=== PATIENT | female | born 1980 | race Caucasian/White ===

== ENCOUNTER 2021-05-09 20:30 | Emergency (ER) | payer SELFPAY ==
[2021-05-09 21:18] VITALS: BP 149/97; PULSE 92; RESP 18; TEMP 36.6; O2SAT 97; BMI 30.9
--- NOTE | 2021-05-10 | ED_ITS ---
Documented by User: THERESE Lantigua 05/10/21 00:01 HPI - Alcohol General: Chief Complaint: Alcohol Stated Complaint: wants to detox Time Seen by Provider: 05/09/21 23:48 [facility] ED PFSH: Medical History Psychiatric care Social History Quit status (tobacco): has tried quititng Number of times tried to quit tobacco: 3 Second hand smoke exposure: No Alcohol intake: current Alcohol intake frequency: few times a week Alcohol type: hard liquor Desire information about alcohol rehabilitation?: No Counseling given: Yes Last alcohol use date: 04/19/21 Last alcohol use time: 11:48 Course Vital Signs: Vital signs: Vital Signs Temperature 97.8 F 05/09/21 21:18 Pulse Rate 92 05/09/21 21:18 Respiratory Rate 18 05/09/21 21:18 Blood Pressure 149/97 05/09/21 21:18 Pulse Oximetry 97 05/09/21 21:18 MDM - Alcohol MDM Narrative: Medical decision making narrative: Visit with patient and discussed facilities are available for rehab treatment such as [facility]. Patient was in [facility] couple weeks ago they admitted for 24 hours and she left AMA. Patient has been in multiple facilities over the last few years and continues to abuse EtOH. Advised patient when a detox facility and patient is upset and left AGAINST MEDICAL ADVICE. I was unable to finish my exam. Patient did have a friend with her who is been taking care for the last few weeks and will be given her a ride home and they will contact [facility] in the next 24 to 36 hours. Friend is with her does have a friend who works at [facility] is waiting for work a phone call back from her. Patient is not suicidal or homicidal. Patient is just desiring to quit drinking. Discharge Plan Discharge Patient Disposition: Left Against Medical Advice Clinical Impression: EtOH dependence Condition: Stable Prescriptions: No Action lisinopril 5 mg tablet 5 mg PO DAILY Qty: 30 RF: 0 gabapentin 600 mg tablet 600 mg PO QID Qty: 120 RF: 0 chlordiazepoxide HCl 5 mg capsule 5 mg PO BID PRN (Reason: anxiety) 7 Days Qty: 14 RF: 0 Referrals: Nidhi Arreaga FNP [Primary Care Provider] - Coding Level of Care Code ED Cement Tester Assistant for Chg Fwd Documented by User: Christiano Barrett DO 05/10/21 01:41 HPI - Alcohol General: Chief Complaint: Alcohol Stated Complaint: wants to detox Time Seen by Provider: 05/09/21 23:48 [facility] ED PFSH: Medical History Psychiatric care Social History Quit status (tobacco): has tried quititng Number of times tried to quit tobacco: 3 Second hand smoke exposure: No Alcohol intake: current Alcohol intake frequency: few times a week Alcohol type: hard liquor Desire information about alcohol rehabilitation?: No Counseling given: Yes Last alcohol use date: 04/19/21 Last alcohol use time: 11:48 Course Vital Signs: Vital signs: Vital Signs Temperature 97.8 F 05/09/21 21:18 Pulse Rate 92 05/09/21 21:18 Respiratory Rate 18 05/09/21 21:18 Blood Pressure 149/97 05/09/21 21:18 Pulse Oximetry 97 05/09/21 21:18 MDM - Alcohol MDM Narrative: Medical decision making narrative: This patient was originally seen by THERESE Bhandari. I agree with his history, evaluation, and treatment. Discharge Plan Discharge Patient Disposition: Left Against Medical Advice Clinical Impression: EtOH dependence Condition: Stable Prescriptions: No Action lisinopril 5 mg tablet 5 mg PO DAILY Qty: 30 RF: 0 gabapentin 600 mg tablet 600 mg PO QID Qty: 120 RF: 0 chlordiazepoxide HCl 5 mg capsule 5 mg PO BID PRN (Reason: anxiety) 7 Days Qty: 14 RF: 0 Referrals: Nidhi Arreaga FNP [Primary Care Provider] - Coding Level of Care Code ED Cement Tester Assistant for Chg Fwd
== END 2021-05-10 00:02 | disposition left against medical advice (07) ==
PROVIDERS: Emergency Provider Nurse Practitioner Family; PCP Nurse Practitioner Family
DX: F10.20 Alcohol dependence, uncomplicated (principal); Z53.21 Procedure and treatment not carried out due to patient leaving prior to being seen by health care provider
CPT/HCPCS: 99281

== ENCOUNTER → 2021-08-06 08:31 | Outpatient (BNVA) | payer MEDICAID, SELFPAY | PROVIDERS: PCP Nurse Practitioner Family; Visit Provider Counselor Mental Health | DX: F10.20 Alcohol dependence, uncomplicated (principal); F60.3 Borderline personality disorder | CPT/HCPCS: 90832 ==

== ENCOUNTER → 2021-11-17 11:33 | Outpatient (BNVA) | payer MEDICAID, SELFPAY | PROVIDERS: PCP Nurse Practitioner Family; Visit Provider Nurse Practitioner Family | DX: F60.3 Borderline personality disorder (principal); I10 Essential (primary) hypertension; G62.9 Polyneuropathy, unspecified | CPT/HCPCS: 80053 ==

== ENCOUNTER 2021-12-25 18:02 | Inpatient (IN) | payer MEDICAID, SELFPAY ==
[2021-12-25 18:41] VITALS: BP 127/84; PULSE 95; RESP 16; TEMP 36.6; O2SAT 94; BMI 29.8
--- NOTE | 2021-12-25 18:42 | ED.C_ITS ---
HPI - Psych General: Chief Complaint: Psychiatric Symptoms Stated Complaint: suicidal Time Seen by Provider: 12/25/21 18:18 Source: patient and police Mode of arrival: other (PD) Limitations: no limitations History of Present Illness: This patient was transported by Police Department to this facility for psychiatric evaluation and treatment as indicated. Apparently she became desponded about interaction with family members and made threats that she was going to harm her self. She allegedly was holding a knife to her throat and was talked down out of that situation by police and then transported to the emergency department. She admits that she has been feeling depressed and despondent. She states that she has been a heavy alcohol user for many years. Her last drink was earlier today. She states that she was contemplating stopping drinking couple weeks ago but then has been still drinkin g some since that time. She is transported to the emergency department accompanied by an affidavit alleging her threats for self-harm. She desires help at this time. MD complaint: suicidal ideation and feels depressed Context: recent alcohol abuse Associated psychiatric symptoms: suicidal ideation Associated symptoms: Reports depression and suicidal ideation; Deny auditory hallucinations, visual hallucinations or homicidal ideation If self harm: admits thoughts of self harm Review of Systems Const: Denies: fever(s) or chills Eyes: Denies: change in vision ENMT: Denies: throat pain, odynophagia, change in hearing or nasal congestion Card: Denies: chest pain, palpitations or irregular heart rhythm Resp: Denies: dyspnea, productive cough or non-productive cough GI: Denies: abdominal pain, nausea, vomiting or diarrhea : Denies: flank pain, difficulty voiding, dysuria, vaginal bleeding or vaginal discharge Musc: Denies: neck pain, back pain, extremity pain or extremity swelling Skin/Breast: Denies: rash or pruritus Neuro: Denies: headache(s), numbness in extremities or weakness in extremities Psych: Reports: depression, memory loss and suicidal ideation; Denies: visual hallucinations, auditory hallucinations or homicidal ideation Endo: Denies: polyuria or polydipsia PFS ED PFSH: Medical History Neuropathy Psychiatric care Social History Quit status (tobacco): has tried quititng Number of times tried to quit tobacco: 3 Second hand smoke exposure: No Alcohol intake: current Alcohol intake frequency: few times a week Alcohol type: hard liquor Desire information about alcohol rehabilitation?: No Counseling given: Yes Last alcohol use date: 04/19/21 Last alcohol use time: 11:48 Physical Exam Narrative: EXAM NARRATIVE: She is initially hesitant and reticent to talk with examiner but then was reassured and she opened up and made good Eye contact and answer questions in a calm goal-directed fashion. Const: COMMON NORMALS: no acute distress, average body habitus, patient oriented x3 and alert GENERAL APPEARANCE: cooperative HENMT: COMMON NORMALS: normocephalic, Normal nasal mucous membranes and turbinates present and moist oral mucous membranes HEAD & SCALP: normocephalic FACE & SINUS: normal facial exam NOSE: Normal nasal mucous membranes and turbinates present THROAT: other (teeth 22,23 and 24 missing) Eye: COMMON NORMALS: Equal, round and reactive pupils present, EOMs intact bilaterally and no scleral icterus PUPIL: Yes Equal, round and reactive pupils present Neck/C-Spine: COMMON NORMALS: full ROM and supple Chest: COMMONS NORMALS: normal inspection of the chest Resp: COMMON NORMALS: normal respiratory effort, No retractions and No use of accessory muscles EFFORT & INSPECTION: Yes able to speak in complete sentences Cardio: COMMON NORMALS: regular rate, regular rhythm and Peripheral pulses 2+ throughout RATE: regular rate RHYTHM: regular rhythm PERIPHERAL PULSES: Peripheral pulses 2+ throughout GI: COMMON NORMALS: Normal to inspection, nondistended, normoactive bowel sounds present Back/Pelvis: COMMON NORMALS: thoracic and lumbar spine normal to inspection and thoraco-lumbar ROM normal Extremity: COMMON NORMALS: normal to inspection, full ROM and no pedal edema Neuro: COMMON NORMALS: patient oriented x3, moves all extremities, no focal motor deficits, no sensory deficits noted and deep tendon reflexes 2+ bi laterally SENSORIUM/ORIENTATION: Yes alert CRANIAL NERVES: Yes CN normal except as noted SPEECH: speech normal GAIT: Yes Normal gait present Psych: COMMON NORMALS: Normal thought process present and speech normal ATTITUDE: Yes calm and Yes Withdrawn affect present SPEECH: Yes normal speech MOOD & AFFECT: Yes depressed mood, Yes anxious and Yes constricted affect THOUGHT PROCESS: Normal thought process present THOUGHT CONTENT: Yes Suicidality present MEMORY/COGNITION: Yes memory grossly intact INSIGHT: Fair insight present (Psych) Skin: COMMON NORMALS: no rashes or lesions noted and no wounds GENERAL SKIN EXAM: no rashes or lesions noted Course ED course: Patient with history of bipolar disorder, alcohol use, worsening depression over the last several days of was transported by police department with affidavit regarding suicidal threats and ideation. Medical screening ex amination was only remarkable in that her blood alcohol level is elevated and will need to be repeated prior to transfer to the inpatient mental health unit. Otherwise she is medically cleared for psychiatric evaluation. She is stable and cooperative throughout her ED stay. Consultations: Consultation #1: Discussed with Dr. Jacob attending psychiatrist. We reviewed her case and he agreed except the patient. There is a pending discharge on the mental health unit and she therefore would be eligible for admission. Time: 21:37 Vital Signs: Vital signs: Vital Signs Temperature 97.8 F 12/25/21 18:53 Pulse Rate 95 12/25/21 18:53 Respiratory Rate 16 12/25/21 18:53 Blood Pressure 127/84 12/25/21 18:53 Pulse Oximetry 94 12/25/21 18:53 MDM - Psych Medical Decision Making This patient to was brought by police department because of suicidal threat is currently cooperative and medically stable for further mental health evaluation and treatment as indicated. Differential Diagnosis Likely suicidal ideation and bipolar disorder Lab Data I reviewed the patient's lab results. : 12/25/21 21:14 12/25/21 21:14 Laboratory Results WBC 8.9 10^3/uL (4.0-10.0) 12/25/21 21:14 RBC 4.67 10^6/uL (4.1-5.3) 12/25/21 21:14 Hgb 14.3 g/dL (11.5-15.3) 12/25/21 21:14 Hct 40.2 % (37.0-47.0) 12/25/21 21:14 MCV 86.1 fl (81-99) 12/25/21 21:14 MCH 30.6 pg (28.0-34.0) 12/25/21 21:14 MCHC 35.6 g/dL (30.0-36.0) 12/25/21 21:14 RDW 13.3 % (12.1-15.1) 12/25/21 21:14 Plt Count 148 10^3/cmm (130-400) 12/25/21 21:14 MPV 10.9 fL (7.4-10.4) H 12/25/21 21:14 Neut % (Auto) 31.0 % 12/25/21 21:14 Lymph % (Auto) 55.5 % 12/25/21 21:14 Sharkey % (Auto) 7.0 % 12/25/21 21:14 Eos % (Auto) 5.4 % 12/25/21 21:14 Baso % (Auto) 0.9 % 12/25/21 21:14 Neut # (Auto) 2.77 10^3/uL (1.8-7.7) 12/25/21 21:14 Lymph # (Auto) 5.0 10^3/uL (0.8-4.8) H 12/25/21 21:14 Sharkey # (Auto) 0.6 10^3/uL (0.2-0.9) 12/25/21 21:14 Eos # (Auto) 0.5 10^3/uL (0.0-0.8) 12/25/21 21:14 Baso # (Auto) 0.1 10^3/uL (0.0-0.1) 12/25/21 21:14 Nucleated RBC % (auto) 0 % 12/25/21 21:14 Nucleated RBCs # 0.0 /100WBC 12/25/21 21:14 Sodium 140 mmol/L (136-145) 12/25/21 21:14 Potassium 3.7 mmol/L (3.5-5.1) 12/25/21 21:14 Chloride 103 mmol/L (98-107) 12/25/21 21:14 Carbon Dioxide 22 mmol/L (22-29) 12/25/21 21:14 Anion Gap 18.7 (5-19) 12/25/21 21:14 BUN 10 mg/dL (6-20) 12/25/21 21:14 Creatinine 0.9 mg/dL (0.5-0.9) 12/25/21 21:14 GFR Calculation 68.3 mL/min (90-130) L 12/25/21 21:14 Glucose 109 mg/dL (65-115) 12/25/21 21:14 Calculated Osmolality 290 mOsm/kg (285-295) 12/25/21 21:14 Calcium 8.9 mg/dL (8.5-10.5) 12/25/21 21:14 Total Bilirubin 0.6 mg/dL (0.15-1.2) 12/25/21 21:14 AST 97 U/L (0-32) H 12/25/21 21:14 ALT 96 U/L (0-33) H 12/25/21 21:14 Alkaline Phosphatase 74 IU/L (35-105) 12/25/21 21:14 Total Protein 7.6 g/dL (6.6-8.7) 12/25/21 21:14 Albumin 3.9 g/dL (3.5-5.2) 12/25/21 21:14 Globulin 3.7 g/dL (1.3-4.6) 12/25/21 21:14 HCG, Qual Negative (Negative) 12/25/21 18:25 Salicylates < 0.3 mg/dL (3-10) L 12/25/21 21:14 Urine Opiates Screen Negative ng/mL (Negative) 12/25/21 18:25 Acetaminophen < 5.0 ug/mL (10-30) L 12/25/21 21:14 Ur Barbiturates Screen Negative ng/mL (Negative) 12/25/21 18:25 Ur Phencyclidine Scrn Negative ng/mL (Negative) 12/25/21 18:25 Ur Amphetamines Screen Negative ng/mL (Negative) 12/25/21 18:25 U Benzodiazepines Scrn Negative ng/mL (Negative) 12/25/21 18:25 Urine Cocaine Screen Negative ng/mL (Negative) 12/25/21 18:25 U Marijuana (THC) Screen Negative ng/mL (Negative) 12/25/21 18:25 Ethyl Alcohol 243 mg/dL (0-10) H 12/25/21 21:14 Discharge Plan Discharge Patient Disposition: Admitted As Inpatient Clinical Impression: Suicidal ideation, Bipolar disorder, EtOH dependence Condition: Stable Coding Level of Care Code ED Green Ware Caster for Gabriela Fwd Exam Comprehensive
[2021-12-25 18:53] VITALS: BP 127/84; PULSE 95; RESP 16; TEMP 36.6; O2SAT 94
[2021-12-25 18:59] LABS: HCG Qualitative Urine. Negative (Negative)
[2021-12-25 21:00] LABS: Amphetamines Screen Urine Negative (Negative); Barbiturates Screen Urine Negative (Negative); Benzodiazepines Screen Urine Negative (Negative); Cocaine Screen Urine Negative (Negative); Opiate Screen Urine Negative (Negative); PCP Screen Urine Negative (Negative); THC Screen Urine Negative (Negative)
[2021-12-25 21:40] LABS: Basophils # 0.1 10^3/uL (0.0-0.1); Basophils % 0.9 %; Eosinophils # 0.5 10^3/uL (0.0-0.8); Eosinophils % 5.4 %; Hematocrit 40.2 % (37.0-47.0); Hemoglobin 14.3 g/dL (11.5-15.3); Lymphocytes % 55.5 %; Mean Corpuscular HGB Conc 35.6 g/dL (30.0-36.0); Mean Corpuscular Hemoglobin 30.6 pg (28.0-34.0); Mean Corpuscular Volume 86.1 fl (81-99); Mean Platelet Volume 10.9 fL (7.4-10.4); Monocytes # 0.6 10^3/uL (0.2-0.9); Neutrophils # 2.77 10^3/uL (1.8-7.7); Nucleated Red Blood Cells % 0 %; Platelet Count 148 10^3/cmm (130-400); Red Blood Count 4.67 10^6/uL (4.1-5.3); Red Cell Distribution Width 13.3 % (12.1-15.1); White Blood Count 8.9 10^3/uL (4.0-10.0)
[2021-12-25 21:51] LABS: Alanine Aminotransferase 96 U/L (0-33); Albumin Level 3.9 g/dL (3.5-5.2); Alcohol Level 243 mg/dL (0-10); Alkaline Phosphatase 74 IU/L (35-105); Anion Gap 18.7 (5-19); Aspartate Amino Transferase 97 U/L (0-32); Blood Urea Nitrogen 10 mg/dL (6-20); Calcium 8.9 mg/dL (8.5-10.5); Carbon Dioxide 22 mmol/L (22-29); Chloride 103 mmol/L (98-107); Globulin 3.7 g/dL (1.3-4.6); Glomerular Filtration Rate 68.3 mL/min (90-130); Glucose 109 mg/dL (65-115); Osmolality Calculated 290 mOsm/kg (285-295); Potassium 3.7 mmol/L (3.5-5.1); Sodium 140 mmol/L (136-145); Total Bilirubin 0.6 mg/dL (0.15-1.2); Total Protein 7.6 g/dL (6.6-8.7)
[2021-12-25 21:53] LABS: Acetaminophen < 5.0 ug/mL (10-30); Salicylate < 0.3 mg/dL (3-10)
[2021-12-26] MEDS: ondansetron 4 MG Tablet PO (02:00)
--- NOTE | 2021-12-26 02:26 | PC.NURSE ---
patient given Oral zofran approx 0200. patient with immediately noted vomiting episodes. Provider notified and will give IM
[2021-12-26] MEDS: ondansetron 2 mg/ML SDV 2 mL 4 MG IM (02:35)
[2021-12-26 02:57] LABS: Alcohol Level 118 mg/dL (0-10)
[2021-12-26] MEDS: gabapentin 300 mg Capsule 600 MG PO ×5 (03:20→20:08)
[2021-12-26] MEDS: LORazepam 2 mg Tablet PO ×4 (04:06→16:13)
--- NOTE | 2021-12-26 04:32 | PC.ADMIT ---
Admission Note: This patient was transported by Police Department to this facility for psychiatric evaluation and treatment as indicated. Apparently she became desponded about interaction with family members and made threats that she was going to harm her self. She allegedly was holding a knife to her throat and was talked down out of that situation by police and then transported to the emergency department. She admits that she has been feeling depressed and despondent. She states that she has been a heavy alcohol user for many years. Her last drink was earlier today. She states that she was contemplating stopping drinking couple weeks ago but then has been still drinking some since that time. She is transported to the emergency department accompanied by an affidavit alleging her threats for self-harm. She desires help at this time. MD complaint: suicidal ideation and feels depressed Patient states that she called the suicide hotline today because she was thinking of killing herself. When police arrived the patient was holding a knife to her neck. The police were able to talk her down and she came to get help. She states that she has lots of family dynamics going on right now so she has been drinking more. She states before all of this she could go 2-3 weeks without a drink but has been drinking 2-3 pints of rum daily. In the last week she has tried to cut it down to 1 pint. Patient denies AVH/HI. She states that she wants to go to rehab. The patient,Terra Kenny,41 y/o, was given written information regarding hospital policies, unit procedures and contact persons. .
--- NOTE | 2021-12-26 05:04 | PC.NURSE ---
Patient arrived at the [facility] and was visibly uncomfortable. She had whole body tremors/shakes, diaphoretic, nauseated, and with a continuous cough that was making her gag. She scored a 23 on the initial CIWA. She was given Ativan 2mg immediately for detox symptoms. Reported to Bead Trimmer Lizette the condition she was in when arriving to the [facility].
[2021-12-26 06:00] VITALS: BP 105/65; PULSE 80; RESP 18; TEMP 36.8; O2SAT 97
--- NOTE | 2021-12-26 08:45 | PC.NURSE ---
PT AROUSES TO VOICE. STATES SHE HAS A MILD HEADACHE 4/10 AND HAS VISIBLE TREMORS/SWEATING. SCORED 14 ON CIWA. MED NURSE NOTIFIED TO ATIVAN ORDERED. PT DENIES SI/HI AND AVH AT THIS TIME. PT UNCERTAIN OF DATE AND TIME. REORIENTATED. ALL QUESTIONS ANSWERED AND SUPPORT VOICED.
[2021-12-26] MEDS: lisinopril 5 mg Tablet PO (08:47)
[2021-12-26] MEDS: nicotine 21 mg Patch 1 PATCH TRANSDERMA (08:50)
[2021-12-26 14:00] VITALS: BP 127/83; PULSE 112; RESP 17; TEMP 36.8; O2SAT 94
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
[2021-12-26] MEDS: ibuprofen 800 mg tablet PO (19:09)
[2021-12-26 19:51] VITALS: BP 135/85; PULSE 87; RESP 16; TEMP 36.4; O2SAT 97
[2021-12-27] MEDS: hyDROXYzine 25 mg Capsule 50 MG PO ×2 (02:49→20:05)
[2021-12-27 06:00] VITALS: BP 134/91; PULSE 88; RESP 18; TEMP 36.8; O2SAT 96
[2021-12-27] MEDS: gabapentin 300 mg Capsule 600 MG PO ×4 (08:39→20:06)
[2021-12-27] MEDS: nicotine 21 mg Patch 1 PATCH TRANSDERMA (08:39)
[2021-12-27] MEDS: ibuprofen 800 mg tablet PO (08:39)
[2021-12-27] MEDS: lisinopril 5 mg Tablet PO (08:40)
[2021-12-27] MEDS: LORazepam 2 mg Tablet PO (09:48)
[2021-12-27 14:00] VITALS: BP 121/78; PULSE 92; RESP 18; TEMP 36.9; O2SAT 99
[2021-12-27] MEDS: OLANZapine 5 mg ODT PO (16:50)
--- NOTE | 2021-12-27 17:22 | P.NPUPN_ITS ---
Subjective NPU Subjective: 41y.o. white female with PTSD and alcohol dependence along with Bipolar Disorder NOS admitted with suicidal ideation. She continued to require addition ativan due to alcohol withdrawal symptoms. Patient had reported that she continued to feel depressed and anxious. She reports desire to get help for alcohol use with reports that she has been sober for at most 30 days over the last 28 years. Patient reports no thoughts of hurting self or others but continues to endorse feelings of hopelessness. Patient reports continued PTSD symptoms, including nightmares, flashbacks and avoidance. Mental Status Exam MSE Comments: Casually dressed female who appeared older than her stated age he was crying throughout much review appeared dysphoric her hands were shaking described as down her affect was restricted in range her thought process was linear and logical thought content showed no evidence of active homicidal ideation or suicidal ideation her insight was limited her judgment remain poor S peech was normal in regards to rate rhythm and prosody. Vitals/I&O/Wt Last Vital Signs Temp 98.4 F 12/27/21 14:00 Pulse 92 12/27/21 14:00 Resp 18 12/27/21 14:00 BP 121/78 12/27/21 14:00 Pulse Ox 99 12/27/21 14:00 Weight last 48 hrs Weight 73.936 kg Data NPU : 12/25/21 21:14 12/25/21 21:14 A&P Assessment and plan (1) PTSD (post-traumatic stress disorder): Status: Acute (2) Suicidal ideation: Status: Acute (3) Bipolar disorder: Status: Acute (4) Anxiety: Status: Acute (5) Hypertension: Status: Acute (6) Borderline personality disorder: Status: Acute (7) Alcohol use disorder, severe, dependence: Status: Acute Plan 1. Start Seroquel 100mg at night target bipolar symptoms 2. Continue to work at consideration of inpatient placement for alcohol dependence 3. Alcohol withdrawal protocol, CIWA continue 4. add naltrexone oral 50mg daily today. 5. Continue involuntary 96 hold. Involuntary Hold Information 96 Hour Hold: 96 Hour Involuntary Admission: Yes 96 Hour Hold Ending Date: 01/02/22 96 Hour Hold Ending Time: 03:45 Attestations NPU Medical Necessity Statement*: Inpatient hospitalization is medically necessary and the clinically appropriate intervention at this time. We will monitor medications and make changes as indicated. Patient continues to require inpatient hospitalizations for 3-5 days. Coding Level of Care Code Acute Tableau Administrator for Chg Fwd History Problem Focused Exam Problem Focused Medical Decision Making Straight Forward Diagnoses PTSD (post-traumatic stress disorder) F43.10 Suicidal ideation R45.851 Bipolar disorder F31.9 Anxiety F41.9 Hypertension I10 Borderline personality disorder F60.3 Alcohol use disorder, severe, dependence F10.20
[2021-12-27] MEDS: quetiapine 25 mg Tablet 50 MG PO (20:05)
[2021-12-27 20:13] VITALS: BP 121/81; PULSE 102; RESP 16; TEMP 36.8; O2SAT 94
--- NOTE | 2021-12-27 20:54 | PC.NURSE ---
PRN PT STATES SHE IS ANXIOUS THIS EVENING AND HAVING TROUBLE TURNING HER MIND OFF. PT WAS GIVEN VISTERIL AND IS NOW RESTING IN BED.
[2021-12-28 06:00] VITALS: BP 116/81; PULSE 88; RESP 16; TEMP 36.8; O2SAT 93; BMI 30.2
[2021-12-28] MEDS: naltrexone hcl 50 mg Tablet PO (07:52)
[2021-12-28] MEDS: gabapentin 300 mg Capsule 600 MG PO ×3 (07:52→17:18)
[2021-12-28] MEDS: lisinopril 5 mg Tablet PO (07:53)
[2021-12-28] MEDS: nicotine 21 mg Patch 1 PATCH TRANSDERMA (07:53)
--- NOTE | 2021-12-28 12:00 | W.PM.NPUPNS ---
Subjective NPU Subjective: 41y.o. white female with PTSD and alcohol dependence along with Bipolar Disorder NOS admitted with suicidal ideation with significant binge drinking. She continued to require addition ativan again today for anxiety and shaking likely due to alcohol withdrawal symptoms.? Patient had reported that she continued to feel depressed and anxious.? She reports desire to get help for alcohol use with reports that she has been sober for at most 30 days over the last 28 years.? Today she asked to return home but acknowledged that no plan was in place to manage her mood or to manage sobriety. She reports no side effects from naltrexone oral 50mg today. Patient reports no thoughts of hurting self or others but continues to endorse feelings of hopelessness.? Patient reports continued PTSD symptoms, including nightmares, flashbacks and avoidance. She reports hope of teletherapy as she reports struggles being around crowds with fear of something bad happening to her. Mental Status Exam MSE Comments: Casually dressed female who appeared older than her stated age she was less tearful today with no shaking appreciated. She still appeared dysphoric with her mood described as down. her affect was restricted in range her thought process was linear and logical. thought content showed no evidence of active homicidal ideation or suicidal ideation. her insight was limited. her judgment remain poor. Speech was normal in regards to rate rhythm and prosody.? Vitals/I&O/Wt Last Vital Signs Temp 97.8 F 12/28/21 14:00 Pulse 84 12/28/21 14:00 Resp 16 12/28/21 14:00 BP 120/83 12/28/21 14:00 Pulse Ox 98 12/28/21 14:00 Weight last 48 hrs Weight 75.024 kg Weight 75.024 kg Data NPU : 12/25/21 21:14 12/25/21 21:14 A&P Assessment and plan (1) PTSD (post-traumatic stress disorder): Status: Acute (2) Suicidal ideation: Plan 1.? Increase Seroquel to 100mg at night to target bipolar symptoms 2.? Continue to work at consideration of inpatient placement for alcohol dependence 3.? Alcohol withdrawal protocol, CIWA continue 4.? continue naltrexone oral 50mg daily? 5.? Continue involuntary 96 hold.? Status: Acute (3) Bipolar disorder: Status: Acute (4) Alcohol use disorder, severe, dependence: Status: Acute (5) Borderline personality disorder: Status: Acute Involuntary Hold Information 96 Hour Hold: 96 Hour Involuntary Admission: Yes 96 Hour Hold Ending Date: 01/02/22 96 Hour Hold Ending Time: 03:45 Attestations NPU Medical Necessity Statement*: Inpatient hospitalization is medically necessary and the clinically appropriate intervention at this time. We will monitor medications and make changes as indicated. Patient continues to require inpatient hospitalizations for 3-5 days.? Patient remains on 96 hour hold. Coding Level of Care Code Acute Geophysical Laboratory Chief for Danieg Fwd History Problem Focused Exam Problem Focused Medical Decision Making Straight Forward Diagnoses PTSD (post-traumatic stress disorder) F43.10 Suicidal ideation R45.851 Bipolar disorder F31.9 Alcohol use disorder, severe, dependence F10.20 Borderline personality disorder F60.3
[2021-12-28 14:00] VITALS: BP 120/83; PULSE 84; RESP 16; TEMP 36.6; O2SAT 98
[2021-12-28] MEDS: LORazepam 2 mg Tablet PO ×2 (14:17→22:30)
[2021-12-28 20:03] VITALS: BP 124/84; PULSE 94; RESP 16; TEMP 36.7; O2SAT 98
[2021-12-28] MEDS: quetiapine 100 mg Tablet PO (20:20)
[2021-12-28] MEDS: hyDROXYzine 25 mg Capsule 50 MG PO (21:02)
--- NOTE | 2021-12-28 21:03 | PC.NURSE ---
anxious and tremors, vestaril given
[2021-12-28 22:21] VITALS: BP 142/89; PULSE 126; RESP 20; TEMP 36.8; O2SAT 97
--- NOTE | 2021-12-28 22:29 | PC.NURSE ---
pt c/o tachycardia, and anxiety, CIWA score 12, PRN lorazepam administered,
[2021-12-29 06:00] VITALS: BP 123/85; PULSE 118; RESP 20; TEMP 36.8; O2SAT 96
[2021-12-29] MEDS: gabapentin 300 mg Capsule 600 MG PO ×2 (08:59→12:39)
[2021-12-29] MEDS: lisinopril 5 mg Tablet PO (08:59)
[2021-12-29] MEDS: nicotine 21 mg Patch 1 PATCH TRANSDERMA (09:13)
[2021-12-29 12:54] VITALS: BP 123/85; PULSE 118; RESP 20; TEMP 36.8; O2SAT 96
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
== END 2021-12-29 13:18 | disposition home or self-care (01) | DRG 885 ==
LOC: ER 21:39 → NP 23:00
PROVIDERS: Admitting Provider Psychiatry & Neurology Psychiatry; Emergency Provider Emergency Medicine; PCP Nurse Practitioner Family; Visit Provider Psychiatry & Neurology Psychiatry
DX: F31.9 Bipolar disorder, unspecified (principal); R45.851 Suicidal ideations; F43.10 Post-traumatic stress disorder, unspecified; F60.3 Borderline personality disorder; F10.20 Alcohol dependence, uncomplicated; Y90.8 Blood alcohol level of 240 mg/100 ml or more; F41.9 Anxiety disorder, unspecified; I10 Essential (primary) hypertension; F17.200 Nicotine dependence, unspecified, uncomplicated; Z63.9 Problem related to primary support group, unspecified; Z91.410 Personal history of adult physical and sexual abuse
CPT/HCPCS: 80053; 80306; 80307; 81025; 85025; 96372; 97165; 99285; J2405; Q0162

== ENCOUNTER 2022-02-22 13:23 | Inpatient (IN) | payer MEDICAID, SELFPAY ==
[2022-02-22] VITALS (14 sets, daily range): BP systolic 96–130; BP diastolic 62–93; PULSE 80–114; RESP 11–21; TEMP 36.4–36.6; O2SAT 90–96; BMI 31.1
--- NOTE | 2022-02-22 13:33 | ED.C_ITS ---
HPI - Psych General: Chief Complaint: Psychiatric Symptoms Stated Complaint: PSYCH EVAL Time Seen by Provider: 02/22/22 13:27 History of Present Illness: 42-year-old brought in by EMS due to suicidal ideation. She also expressed homicidal ideation. Patient was found intoxicated by family and became very combative. She denies any focal pain. EMS denies any signs of trauma. Review of Systems Narrative: - CONSTITUTIONAL: Denies weight loss, fever and chills. - HEENT: Denies changes in vision and hearing. - RESPIRATORY: Denies SOB and cough. - CV: Denies palpitations and CP. - GI: Denies abdominal pain, nausea, vomiting and diarrhea. - : Denies dysuria and urinary frequency. - MSK: Denies myalgia and joint pain. - SKIN: Denies rash and pruritus. - NEUROLOGICAL: Denies headache, weakness, numbness and syncope. 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 No acute distress. Well-nourished. - EYES: EOMI. Anicteric. - HENT: Atraumatic, no C-spine tenderness. Moist mucous membranes. No scleral icterus. No cervical lymphadenopathy. - LUNGS: Clear to auscultation bilaterally. No accessory muscle use. Equal lung sounds bilaterally. No respiratory distress. - CARDIOVASCULAR: Regular rate and rhythm. No murmur. No JVD. - ABDOMEN: Soft, non-tender and non-distended. Negative CVA tenderness bilaterally, no rebound or guarding, negative Lopez sign. No palpable masses. - EXTREMITIES: No edema. Non-tender. - SKIN: No rashes or lesions. Warm. - NEUROLOGIC: No meningismus or focal neurological deficits. CN II-XII grossly intact. - PSYCHIATRIC: Endorses suicidal and homicidal ideation Course Vital Signs: Vital signs: Vital Signs Temperature 98 F 02/22/22 13:24 Pulse Rate 91 02/22/22 14:30 Respiratory Rate 19 H 02/22/22 14:30 Blood Pressure 118/70 02/22/22 14:30 Pulse Oximetry 93 02/22/22 14:30 Oxygen Delivery Me thod 02/22/22 13:24 MDM - Psych Medical Decision Making 42-year-old presents with suicidal homicidal ideation by police. No signs of trauma. Patient was initially agitated requiring Haldol. Discussed with psychiatry and they agreed patient would benefit from admission. Patient admitted in stable condition. Further evaluation management per psychiatry team. Lab Data : 02/22/22 14:15 02/22/22 14:15 Laboratory Results WBC 9.0 10^3/uL (4.0-10.0) 02/22/22 14:15 RBC 4.51 10^6/uL (4.1-5.3) 02/22/22 14:15 Hgb 13.6 g/dL (11.5-15.3) 02/22/22 14:15 Hct 40.5 % (37.0-47.0) 02/22/22 14:15 MCV 89.8 fl (81-99) 02/22/22 14:15 MCH 30.2 pg (28.0-34.0) 02/22/22 14:15 MCHC 33.6 g/dL (30.0-36.0) 02/22/22 14:15 RDW 14.6 % (12.1-15.1) 02/22/22 14:15 Plt Count 162 10^3/cmm (130-400) 02/22/22 14:15 MPV 10.9 fL (7.4-10.4) H 02/22/22 14:15 Neut % (Auto) 40.8 % 02/22/22 14:15 Lymph % (Auto) 45.4 % 02/22/22 14:15 [place] % (Auto) 10.1 % 02/22/22 14:15 Eos % (Auto) 2.6 % 02/22/22 14:15 Baso % (Auto) 0.9 % 02/22/22 14:15 Neut # (Auto) 3.66 10^3/uL (1.8-7.7) 02/22/22 14:15 Lymph # (Auto) 4.1 10^3/uL (0.8-4.8) 02/22/22 14:15 [place] # (Auto) 0.9 10^3/uL (0.2-0.9) 02/22/22 14:15 Eos # (Auto) 0.2 10^3/uL (0.0-0.8) 02/22/22 14:15 Baso # (Auto) 0.1 10^3/uL (0.0-0.1) 02/22/22 14:15 Nucleated RBC % (auto) 0 % 02/22/22 14:15 Nucleated RBCs # 0.0 /100WBC 02/22/22 14:15 Sodium 138 mmol/L (136-145) 02/22/22 14:15 Potassium 3.7 mmol/L (3.5-5.1) 02/22/22 14:15 Chloride 108 mmol/L (98-107) H 02/22/22 14:15 Carbon Dioxide 18 mmol/L (22-29) L 02/22/22 14:15 Anion Gap 15.7 (5-19) 02/22/22 14:15 BUN 16 mg/dL (6-20) 02/22/22 14:15 Creatinine 0.9 mg/dL (0.5-0.9) 02/22/22 14:15 GFR Calculation 68.0 mL/min (90-130) L 02/22/22 14:15 Glucose 108 mg/dL (65-115) 02/22/22 14:15 Calculated Osmolality 288 mOsm/kg (285-295) 02/22/22 14:15 Calcium 8.6 mg/dL (8.5-10.5) 02/22/22 14:15 Total Bilirubin 0.3 mg/dL (0.15-1.2) 02/22/22 14:15 AST 159 U/L (0-32) H 02/22/22 14:15 ALT 111 U/L (0-33) H 02/22/22 14:15 Alkaline Phosphatase 102 U/L (35-105) 02/22/22 14:15 Total Protein 7.6 g/dL (6.6-8.7) 02/22/22 14:15 Albumin 3.8 g/dL (3.5-5.2) 02/22/22 14:15 Globulin 3.8 g/dL (1.3-4.6) 02/22/22 14:15 TSH 2.05 uIU/mL (0.27-4.20) 02/22/22 14:15 HCG, Qual Negative (Negative) 02/22/22 14:53 Salicylates < 0.3 mg/dL (3-10) L 02/22/22 14:15 Urine Opiates Screen Negative ng/mL (Negative) 02/22/22 14:53 Acetaminophen < 5.0 ug/mL (10-30) L 02/22/22 14:15 Ur Barbiturates Screen Negative ng/mL (Negative) 02/22/22 14:53 Ur Phencyclidine Scrn Negative ng/mL (Negative) 02/22/22 14:53 Ur Amphetamines Screen Negative ng/mL (Negative) 02/22/22 14:53 U Benzodiazepines Scrn Negative ng/mL (Negative) 02/22/22 14:53 Urine Cocaine Screen Negative ng/mL (Negative) 02/22/22 14:53 U Marijuana (THC) Screen Negative ng/mL (Negative) 02/22/22 14:53 Ethyl Alcohol 319 mg/dL (0-10) H* 02/22/22 14:15 Discharge Plan Discharge Condition: Stable Prescriptions: No Action lisinopril 5 mg tablet 5 mg PO DAILY Qty: 90 1RF gabapentin 600 mg tablet 600 mg PO QID Qty: 120 1RF Referrals: Nidhi Arreaga FNP [Primary Care Provider] - Coding Level of Care Code ED Credit Collection Specialist for Gabriela Brandt
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
[2022-02-22] MEDS: diphenhydrAMINE 50 mg/mL SDV 1mL IM (13:39)
[2022-02-22] MEDS: haloperidol inj 5 mg/mL INJ 1 mL IM (13:39)
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
[2022-02-22 14:34] LABS: Basophils # 0.1 10^3/uL (0.0-0.1); Basophils % 0.9 %; Eosinophils # 0.2 10^3/uL (0.0-0.8); Eosinophils % 2.6 %; Hematocrit 40.5 % (37.0-47.0); Hemoglobin 13.6 g/dL (11.5-15.3); Lymphocytes # 4.1 10^3/uL (0.8-4.8); Lymphocytes % 45.4 %; Mean Corpuscular HGB Conc 33.6 g/dL (30.0-36.0); Mean Corpuscular Hemoglobin 30.2 pg (28.0-34.0); Mean Corpuscular Volume 89.8 fl (81-99); Mean Platelet Volume 10.9 fL (7.4-10.4); Monocytes # 0.9 10^3/uL (0.2-0.9); Monocytes % 10.1 %; Neutrophils # 3.66 10^3/uL (1.8-7.7); Neutrophils % 40.8 %; Nucleated Red Blood Cells % 0 %; Platelet Count 162 10^3/cmm (130-400); Red Blood Count 4.51 10^6/uL (4.1-5.3); Red Cell Distribution Width 14.6 % (12.1-15.1)
[2022-02-22 14:59] LABS: Alanine Aminotransferase 111 U/L (0-33); Albumin Level 3.8 g/dL (3.5-5.2); Alkaline Phosphatase 102 U/L (35-105); Anion Gap 15.7 (5-19); Aspartate Amino Transferase 159 U/L (0-32); Blood Urea Nitrogen 16 mg/dL (6-20); Calcium 8.6 mg/dL (8.5-10.5); Carbon Dioxide 18 mmol/L (22-29); Chloride 108 mmol/L (98-107); Globulin 3.8 g/dL (1.3-4.6); Glucose 108 mg/dL (65-115); Osmolality Calculated 288 mOsm/kg (285-295); Potassium 3.7 mmol/L (3.5-5.1); Sodium 138 mmol/L (136-145); Thyroid Stimulating Hormone 2.05 uIU/mL (0.27-4.20); Total Bilirubin 0.3 mg/dL (0.15-1.2); Total Protein 7.6 g/dL (6.6-8.7)
[2022-02-22 15:07] LABS: Amphetamines Screen Urine Negative (Negative); Barbiturates Screen Urine Negative (Negative); Benzodiazepines Screen Urine Negative (Negative); Cocaine Screen Urine Negative (Negative); Opiate Screen Urine Negative (Negative); PCP Screen Urine Negative (Negative); THC Screen Urine Negative (Negative)
[2022-02-22 15:09] LABS: HCG Qualitative Urine. Negative (Negative)
[2022-02-22 15:44] LABS: Acetaminophen < 5.0 ug/mL (10-30); Salicylate < 0.3 mg/dL (3-10)
[2022-02-22 15:45] LABS: Alcohol Level 319 mg/dL (0-10)
[2022-02-22 16:02] LABS: Add Urine Microscopic? YES; Bilirubin Urine Neg (Negative); Blood Urine 3+ (Negative); Glucose Urine UA Norm (Normal); Ketones Urine Negative (Negative); Leukocyte Esterase Urine 1+ (Negative); Nitrate Urine Negative (Negative); Protein Urine Neg (Negative); Urine Appearance Clear (CLEAR); Urine Color Yellow (Yellow); Urobilinogen Urine Norm (Negative); pH Urine 6 (5-7)
[2022-02-22 16:10] LABS: Add Urine Culture? Yes; Bacteria Urine 1+ /hpf; Squamous Epithelial Cell Urine 0-4 /hpf (0-5)
--- NOTE | 2022-02-22 16:55 | PC.NURSE ---
attempted to call report to NPU, unavailable for report at this time
--- NOTE | 2022-02-22 17:27 | PC.NURSE ---
Report called to ADINA Marquez on NPU, requesting to hold pt in ED until after shift change
--- NOTE | 2022-02-22 19:16 | PC.NURSE ---
report given to ADINA Constantino
[2022-02-22] MEDS: LORazepam 2 mg Tablet PO (21:08)
[2022-02-22] MEDS: ondansetron 4 MG Tablet PO (21:08)
[2022-02-22] MEDS: acetaminophen 325 mg Tablet 650 MG PO (21:08)
[2022-02-23] MEDS: ondansetron 4 MG Tablet PO (02:50)
[2022-02-23] MEDS: OLANZapine 5 mg ODT PO (02:50)
[2022-02-23] MEDS: LORazepam 2 mg Tablet PO ×2 (02:50→06:42)
[2022-02-23 06:00] VITALS: BP 128/81; PULSE 93; RESP 16; TEMP 36.7; O2SAT 96
[2022-02-23] MEDS: folic acid 1 mg Tablet PO (08:48)
[2022-02-23] MEDS: thiamine 100 mg Tablet PO (08:48)
[2022-02-23] MEDS: gabapentin 300 mg Capsule 600 MG PO ×4 (08:48→20:17)
[2022-02-23] MEDS: lisinopril 5 mg Tablet PO (08:48)
[2022-02-23] MEDS: multivitamin therapeutic Tablet 1 TAB PO (08:48)
--- NOTE | 2022-02-23 10:00 | PC.NURSE ---
IN BED RESTING. DENIES SI/HI AND AVH AT THIS TIME. PT DENIES PAIN. PT IS ON CIWA PROTOCOL AND SCORED 2 SO NO MEDICATION WAS GIVEN AT THAT TIME. PT STATES SHE HAS NO DEPRESSION AND NO ANXIETY. MILD ANXIETY IS NOTED. ALL QUESTIONS ANSWERED AND SUPPORT WAS VOICED.
[2022-02-23 14:00] VITALS: BP 116/74; PULSE 88; RESP 18; TEMP 36.6; O2SAT 96
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
[2022-02-23 19:54] VITALS: BP 119/77; PULSE 87; RESP 18; TEMP 36.8; O2SAT 93
[2022-02-24 06:00] VITALS: BP 112/77; PULSE 93; RESP 18; TEMP 36.8; O2SAT 93
[2022-02-24] MEDS: nicotine 21 mg Patch 1 PATCH TRANSDERMA (08:25)
[2022-02-24] MEDS: lisinopril 5 mg Tablet PO (08:26)
[2022-02-24] MEDS: folic acid 1 mg Tablet PO (08:26)
[2022-02-24] MEDS: thiamine 100 mg Tablet PO (08:26)
[2022-02-24] MEDS: multivitamin therapeutic Tablet 1 TAB PO (08:26)
[2022-02-24] MEDS: gabapentin 300 mg Capsule 600 MG PO ×4 (08:26→20:41)
[2022-02-24 14:00] VITALS: BP 126/86; PULSE 94; RESP 18; TEMP 37.1; O2SAT 97
--- NOTE | 2022-02-24 18:14 | W.PM.NPUPNS ---
Subjective NPU Subjective: Gracy is a 42-year-old white female with a significant history of PTSD depression and alcohol dependence admitted after she had endorsed suicidal thoughts with significant use of alcohol. The patient remained on an alcohol withdrawal protocol. She continued to report an inability to engage in alcohol or set any type of substance abuse treatment. She had reported difficulties with tolerating mood stabilizer such as Seroquel and reported that the naltrexone made her feel different. The patient had reported continued use of alcohol despite adverse consequences. She had reported some relief of anxiety while taking gabapentin on a daily basis. She had reported some chronic problems with managing her mood fluctuations and reported that she was motivated for receiving substance abuse treatment. She did not report any desire for inpatient treatment for substance abuse but was willing to consider outpatient rehabilitation as she had in the past. The patient had acknowledged that she was drinking about 6 beers a day and states that she is willing to return to services through [facility]. She had reported chronic distrust of others and reports that she was struggling with managing her mood and often turned to consumption of alcohol during times where she felt increasingly stressed or had nightmares and frequent recurrent thoughts regarding her previous abuse. Mental Status Exam MSE Comments: She is a casually dressed white female who appeared her stated age. She was alert and oriented to person place and time. Her mood was described as okay. Her affect was mood congruent and restricted in range. There was no evidence of any delusional thinking. She did not appear to be responding to internal stimuli. Her attention and concentration appeared adequate. her impulse control was poo.r her insight was limited. her judgment is poor. speech was normal in regards to rate rhythm and prosody. Vitals/I&O/Wt Last Vital Signs Temp 98.8 F 02/24/22 14:00 Pulse 94 02/24/22 14:00 Resp 18 02/24/22 14:00 BP 126/86 02/24/22 14:00 Pulse Ox 97 02/24/22 14:00 O2 Del Method 02/23/22 14:00 Data NPU : 02/22/22 14:15 02/22/22 14:15 Micro: Microbiology 02/22/22 14:53 Urine Culture - Preliminary Urine,Clean Catch Microbiology 02/22/22 14:53 Urine,Clean Catch Urine Culture - Preliminary A&P Assessment and plan (1) PTSD (post-traumatic stress disorder): Status: Resolved (2) Suicidal ideation: Status: Resolved (3) Bipolar disorder: Status: Acute (4) Alcohol use disorder, severe, dependence: Status: Acute (5) Borderline personality disorder: Status: Acute Plan DOLLY Is a 42-year-old white female with a significant history of alcohol dependence posttraumatic stress disorder and depression who continues to use alcohol and continues to show evidence of requiring some intensive dual diagnosis treatment program as her previous attempts at remaining sober have failed to the state. Plan 1.? Restart previous medications. 2.? Continue to work at consideration of inpatient placement for alcohol dependence 3.? Alcohol withdrawal protocol, CIWA continue 4.? Continue involuntary 96 hold.? 5. Recommend intensive treatment for PTSD while engaging patient in active treatment of alcohol dependence. Involuntary Hold Information 96 Hour Hold: 96 Hour Involuntary Admission: Yes 96 Hour Hold Ending Date: 02/26/22 96 Hour Hold Ending Time: 19:30 Attestations NPU Medical Necessity Statement*: Inpatient hospitalization is medically necessary and the clinically appropriate intervention at this time. We will monitor medications and make changes as indicated. She will be expected to stay more than two midnights with expected inpatient hospitalization for 2-4 days.? Patient remains on 96 hour hold. Coding Level of Care Code Established Pt Acute Mellowing Machine Operator for Gabriela Brandt Patient Type Established History Problem Focused Exam Problem Focused Medical Decision Making Straight Forward Diagnoses PTSD (post-traumatic stress disorder) F43.10 Suicidal ideation R45.851 Bipolar disorder F31.9 Alcohol use disorder, severe, dependence F10.20 Borderline personality disorder F60.3
[2022-02-24 21:58] VITALS: BP 117/83; PULSE 94; RESP 17; TEMP 37.1; O2SAT 97
[2022-02-24] MEDS: hyDROXYzine 25 mg Capsule 50 MG PO (23:30)
[2022-02-25 06:00] VITALS: BP 106/73; PULSE 88; RESP 20; TEMP 36.8; O2SAT 97
[2022-02-25] MEDS: gabapentin 300 mg Capsule 600 MG PO ×4 (10:33→20:24)
[2022-02-25] MEDS: folic acid 1 mg Tablet PO (10:33)
[2022-02-25] MEDS: lisinopril 5 mg Tablet PO (10:33)
[2022-02-25] MEDS: thiamine 100 mg Tablet PO (10:33)
[2022-02-25] MEDS: multivitamin therapeutic Tablet 1 TAB PO (10:33)
[2022-02-25] MEDS: nicotine 21 mg Patch 1 PATCH TRANSDERMA (11:29)
[2022-02-25 14:00] VITALS: BP 135/86; PULSE 98; RESP 20; TEMP 37; O2SAT 97
--- NOTE | 2022-02-25 14:16 | W.PM.NPUPNS ---
Subjective NPU Subjective: Gracy is a 42-year-old white female with a significant history of PTSD depression and alcohol dependence admitted after she had endorsed suicidal thoughts with significant use of alcohol. The patient remained on an alcohol withdrawal protocol but did not receive any lorazepam. Patient continued to report resistance to any inpatient rehabilitation facility as she states that she has a dog that is her only true love in life and that she needed to care for it. She reports that she is willing to consider outpatient substance abuse treatment that is separate from her treatment for her mood and PTSD related symptoms. She had reported periods of intermittent depression here but reports that she is continuing to struggle with managing her mood swings. She had reported a history of difficulties with tolerating previous medications but stated that she was agreeable to restarting the mirtazapine today. Patient had endorsed infrequent thoughts of suicide but reported none currently. She reports no active plan to hurt herself. She reports that she had some struggles with sleep last night. She reports no cravings for alcohol currently. She does report that she has been concerned that she may eventually be drinking herself to . She continues to report chronic distrust of others and reports feelings of abandonment. She does report at times sabotaging her treatment on the outside and states that she does not like being controlled. Mental Status Exam MSE Comments: She is a casually dressed white female who appeared her stated age. She was alert and oriented to person place and time. Her mood was described as okay. Her affect was mood incongruent and labile with periods of tearfullness noted. There was no evidence of any delusional thinking. She did not appear to be responding to internal stimuli. Her attention and concentration appeared adequate. her impulse control was poor. her insight was limited. her judgment is poor. Her speech was normal in regards to rate rhythm and prosody. Vitals/I&O/Wt Last Vital Signs Temp 98.2 F 02/25/22 06:00 Pulse 88 02/25/22 06:00 Resp 20 H 02/25/22 06:00 BP 106/73 02/25/22 06:00 Pulse Ox 97 02/25/22 06:00 O2 Del Method 02/25/22 06:00 Data NPU : 02/22/22 14:15 02/22/22 14:15 A&P Assessment and plan (1) PTSD (post-traumatic stress disorder): Status: Resolved (2) Suicidal ideation: Status: Resolved (3) Bipolar disorder: Status: Acute (4) Alcohol use disorder, severe, dependence: Status: Acute (5) Borderline personality disorder: Status: Acute Plan DOLLY Is a 42-year-old white female with a significant history of alcohol dependence posttraumatic stress disorder and depression who continues to use alcohol and continues to show evidence of requiring some intensive dual diagnosis treatment program as her previous attempts at remaining sober have failed to the state. Plan 1.? Restart Remeron 15mg at night tonight. 2.? Continue to work at consideration of inpatient placement for alcohol dependence 3.? Alcohol withdrawal protocol, CIWA continue 4.? Continue involuntary 96 hold.? 5. Recommend intensive treatment for PTSD while engaging patient in active treatment of alcohol dependence. Referral for outpatient substance abuse treatment at [facility]. Involuntary Hold Information 96 Hour Hold: 96 Hour Involuntary Admission: Yes 96 Hour Hold Ending Date: 02/26/22 96 Hour Hold Ending Time: 19:30 Attestations NPU Medical Necessity Statement*: Inpatient hospitalization is medically necessary and the clinically appropriate intervention at this time. She is likely to require inpatient hospitalization for 2-4 days.? Patient remains on 96 hour hold. Coding Level of Care Code Established Pt Acute Medical Assistant Internal Medicine for Gabriela Brandt Patient Type Established History Problem Focused Exam Problem Focused Medical Decision Making Straight Forward Diagnoses PTSD (post-traumatic stress disorder) F43.10 Suicidal ideation R45.851 Bipolar disorder F31.9 Alcohol use disorder, severe, dependence F10.20 Borderline personality disorder F60.3
[2022-02-25] MEDS: mirtazapine 15 mg Tablet PO (20:24)
[2022-02-25] MEDS: hyDROXYzine 25 mg Capsule 50 MG PO (20:45)
[2022-02-25 21:17] VITALS: BP 118/82; PULSE 99; RESP 15; TEMP 36.8; O2SAT 97
[2022-02-26 06:00] VITALS: BP 116/65; PULSE 91; RESP 16; TEMP 36.4; O2SAT 95
[2022-02-26] MEDS: thiamine 100 mg Tablet PO (09:46)
[2022-02-26] MEDS: lisinopril 5 mg Tablet PO (09:46)
[2022-02-26] MEDS: gabapentin 300 mg Capsule 600 MG PO ×2 (09:46→12:37)
[2022-02-26] MEDS: folic acid 1 mg Tablet PO (09:46)
[2022-02-26] MEDS: multivitamin therapeutic Tablet 1 TAB PO (09:46)
--- NOTE | 2022-02-26 11:18 | PC.NURSE ---
Nurse Note Patient conversating and laughing in dayroom with roommate. We moved to her room to complete the assessment. She stated she slept great and is currently experiencing no pain. Denies any suicidal or homicidal ideations. Denies auditory or visual hallucinations. States she is not anxious at all today. She smiled the entire time we talked! Nothing to note on CIWA except her hands were still a bit shaky. No other concerns or needs noted at this time.
[2022-02-26] MEDS: nicotine 21 mg Patch 1 PATCH TRANSDERMA (11:31)
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
[2022-02-26 13:55] VITALS: BP 116/65; PULSE 91; RESP 16; TEMP 36.4; O2SAT 95
--- NOTE | 2022-02-26 14:35 | PC.NURSE ---
NEW ORDERS PT C/O CONSTIPATION NO BM FOR 3 DAYS. NEW ORDER RECEIVED FOR MOM 30 MLS PO NOW. EDUCATED PT ON NEW ORDER VERBALIZED UNDERSTANDING
== END 2022-02-26 15:15 | disposition home or self-care (01) | DRG 882 ==
LOC: ER 14:39 → NP 17:32
PROVIDERS: Admitting Provider Psychiatry & Neurology Psychiatry; Emergency Provider Emergency Medicine; PCP Nurse Practitioner Family; Visit Provider Psychiatry & Neurology Psychiatry
DX: F43.10 Post-traumatic stress disorder, unspecified (principal); R45.851 Suicidal ideations; F31.9 Bipolar disorder, unspecified; F10.229 Alcohol dependence with intoxication, unspecified; Y90.8 Blood alcohol level of 240 mg/100 ml or more; F60.3 Borderline personality disorder; I10 Essential (primary) hypertension; G62.9 Polyneuropathy, unspecified; F17.210 Nicotine dependence, cigarettes, uncomplicated; Z81.8 Family history of other mental and behavioral disorders; Z62.810 Personal history of physical and sexual abuse in childhood; Z86.19 Personal history of other infectious and parasitic diseases; Z62.811 Personal history of psychological abuse in childhood; Z91.410 Personal history of adult physical and sexual abuse
CPT/HCPCS: 80053; 80306; 80307; 81001; 81025; 84443; 85025; 87077; 87086; 87186; 96372; 97150; 97165; 99285; J1200; J1630; Q0162

== ENCOUNTER 2022-04-24 21:11 | Inpatient (IN) | payer MEDICAID, SELFPAY ==
[2022-04-24 21:25] VITALS: BP 145/91; PULSE 121; RESP 16; TEMP 36.8; O2SAT 95
--- NOTE | 2022-04-24 21:25 | W.ED.PSYCHS ---
HPI - Psych General: Chief Complaint: Psychiatric Symptoms Stated Complaint: 96HR Hold Time Seen by Provider: 04/24/22 21:25 History of Present Illness: Ms Kenny is a 42-year-old lady with apparent history of psychiatric disorder, diagnosis of borderline personality disorder, alcohol abuse presenting to the emergency department for suicidal ideation. Per law enforcement report they were called by someone and upon seeing the patient she was clinically intoxicated and endorsed plan for self-harm including giving her dog away to her cousin or other family member. The patient also has been combining alcohol with her gabapentin though the intent of this is unclear. Law enforcement apparently witnessed her to drink both alcohol and take her gabapentin. Upon my assessment patient is tearful and clinically intoxicated which somewhat limits history. She reports being upset about an incident where she got a phone call from her daughter's phone number though it did not sound like her daughter and repeatedly asked for a welfare check but also did not know the secret code word. History is very tangential after that patient does endorse consuming alcohol today. She says regarding the incident with her cousin that she just wanted her to take the dog so that the patient could scream and did not want to scare the dog though this is a different story than told to law enforcement. History otherwise limited by mental status. Review of Systems General: Reports: ROS unobtainable due to mental status PFSH ED PFSH: Medical History Neuropathy Psychiatric care Social History Smoking and tobacco status: current every day smoker cigarettes Packs smoked per day: 0.3 Years cigarettes smoked: 23 Quit status (tobacco): has tried quititng Number of times tried to quit tobacco: 3 Second hand smoke exposure: No Alcohol intake: current Alcohol intake frequency: few times a week Alcohol type: hard liquor Desire information about alcohol rehabilitation?: No Counseling given: Yes Last alcohol use date: 04/19/21 Last alcohol use time: 11:48 Physical Exam Const: COMMON NORMALS: alert GENERAL APPEARANCE: cooperative and well developed HENMT: COMMON NORMALS: normocephalic and atraumatic HEAD & SCALP: normocephalic and atraumatic Eye: COMMON NORMALS: conjunctivae normal CONJUNCTIVA: Yes conjunctivae normal SCLERA: sclerae normal Neck/C-Spine: COMMON NORMALS: supple GENERAL: Yes trachea midline Resp: COMMON NORMALS: clear to auscultation bilaterally EFFORT & INSPECTION: Yes able to speak in complete sentences AUSCULTATION: clear to auscultation bilaterally Cardio: COMMON NORMALS: regular rate and regular rhythm RATE: regular rate RHYTHM: regular rhythm GI: COMMON NORMALS: Soft to palpation PALPATION: Yes Soft to palpation and No Tenderness to palpation present (GI) Extremity: GENERAL: Yes normal exam except as noted and No edema Neuro: COMMON NORMALS: moves all extremities SENSORIUM/ORIENTATION: Yes alert and Yes Orientation impaired OTHER: Appears clinically intoxicated Psych: INSIGHT: Poor insight present (Psych) JUDGEMENT: Poor judgement present (Psych) Course Vital Signs: Vital signs: Vital Signs Temperature 98.4 F 04/28/22 09:11 Pulse Rate 99 04/28/22 09:11 Respiratory Rate 16 04/28/22 09:11 Blood Pressure 111/77 04/28/22 09:11 Pulse Oximetry 95 04/28/22 09:11 Oxygen Delivery Me thod 04/25/22 03:29 MDM - Psych Medical Decision Making 42-year-old lady presenting with statements regarding self-harm and possible actions and perforation for suicide. Patient appears clinically intoxicated consistent with reported alcohol consumption. No evidence of trauma on exam. Labs with mild hemoconcentration. Transaminitis likely secondary to alcohol use. No UTI. Toxic ingestions negative with exception of elevated ethyl alcohol level. Based on ED evaluation at this point there is no obvious condition that would preclude the patient from inpatient management of psychiatric concerns. She did require medications for significant agitation and combative behavior in the emergency department. Discussed case with psychiatry service who is agreeable to admit the patient. Medical Records I reviewed the patient's medical records. Lab Data I reviewed the patient's lab results. : 04/24/22 21:35 04/24/22 21:35 Laboratory Results WBC 9.2 10^3/uL (4.0-10.0) 04/24/22 21:35 RBC 5.21 10^6/uL (4.1-5.3) 04/24/22 21:35 Hgb 16.2 g/dL (11.5-15.3) H 04/24/22 21:35 Hct 46.2 % (37.0-47.0) 04/24/22 21:35 MCV 88.7 fl (81-99) 04/24/22 21:35 MCH 31.1 pg (28.0-34.0) 04/24/22 21:35 MCHC 35.1 g/dL (30.0-36.0) 04/24/22 21:35 RDW 13.9 % (12.1-15.1) 04/24/22 21:35 Plt Count 196 10^3/cmm (130-400) 04/24/22 21:35 MPV 10.3 fL (7.4-10.4) 04/24/22 21:35 Neut % (Auto) 46.8 % 04/24/22 21:35 Lymph % (Auto) 41.8 % 04/24/22 21:35 [place] % (Auto) 6.6 % 04/24/22 21:35 Eos % (Auto) 2.9 % 04/24/22 21:35 Baso % (Auto) 1.6 % 04/24/22 21:35 Neut # (Auto) 4.29 10^3/uL (1.8-7.7) 04/24/22 21:35 Lymph # (Auto) 3.9 10^3/uL (0.8-4.8) 04/24/22 21:35 [place] # (Auto) 0.6 10^3/uL (0.2-0.9) 04/24/22 21:35 Eos # (Auto) 0.3 10^3/uL (0.0-0.8) 04/24/22 21:35 Baso # (Auto) 0.2 10^3/uL (0.0-0.1) H 04/24/22 21:35 Nucleated RBC % (auto) 0 % 04/24/22 21:35 Nucleated RBCs # 0.0 /100WBC 04/24/22 21:35 Sodium 142 mmol/L (136-145) 04/24/22 21:35 Potassium 4.2 mmol/L (3.5-5.1) 04/24/22 21:35 Chloride 106 mmol/L (98-107) 04/24/22 21:35 Carbon Dioxide 22 mmol/L (22-29) 04/24/22 21:35 Anion Gap 18.2 (5-19) 04/24/22 21:35 BUN 11 mg/dL (6-20) 04/24/22 21:35 Creatinine 0.9 mg/dL (0.5-0.9) 04/24/22 21:35 GFR Calculation 68.0 mL/min (90-130) L 04/24/22 21:35 Glucose 139 mg/dL (65-115) H 04/24/22 21:35 Calculated Osmolality 296 mOsm/kg (285-295) H 04/24/22 21:35 Calcium 9.4 mg/dL (8.5-10.5) 04/24/22 21:35 Total Bilirubin 0.6 mg/dL (0.15-1.2) 04/24/22 21:35 AST 145 U/L (0-32) H 04/24/22 21:35 ALT 143 U/L (0-33) H 04/24/22 21:35 Alkaline Phosphatase 102 U/L (35-105) 04/24/22 21:35 Total Protein 8.9 g/dL (6.6-8.7) H 04/24/22 21:35 Albumin 4.1 g/dL (3.5-5.2) 04/24/22 21:35 Globulin 4.8 g/dL (1.3-4.6) H 04/24/22 21:35 TSH 1.05 uIU/mL (0.27-4.20) 04/24/22 21:35 Salicylates < 0.3 mg/dL (3-10) L 04/24/22 21:35 Acetaminophen < 5.0 ug/mL (10-30) L 04/24/22 21:35 Ethyl Alcohol 295 mg/dL (0-10) H 04/24/22 21:35 Discharge Plan Discharge Patient Disposition: Admitted As Inpatient Admit Provider: Richard Jacob Clinical Impression: Suicidal ideation, Drug-induced psychotic disorder, Alcohol abuse Condition: Stable Discharge Diet: Usual diet Discharge Activity: Resume usual activity Coding Level of Care Code ED Automobile Spring Repairer for Gabriela Brandt
[2022-04-24 21:45] LABS: Basophils # 0.2 10^3/uL (0.0-0.1); Basophils % 1.6 %; Eosinophils # 0.3 10^3/uL (0.0-0.8); Eosinophils % 2.9 %; Hematocrit 46.2 % (37.0-47.0); Hemoglobin 16.2 g/dL (11.5-15.3); Lymphocytes # 3.9 10^3/uL (0.8-4.8); Lymphocytes % 41.8 %; Mean Corpuscular HGB Conc 35.1 g/dL (30.0-36.0); Mean Corpuscular Hemoglobin 31.1 pg (28.0-34.0); Mean Corpuscular Volume 88.7 fl (81-99); Mean Platelet Volume 10.3 fL (7.4-10.4); Monocytes # 0.6 10^3/uL (0.2-0.9); Monocytes % 6.6 %; Neutrophils # 4.29 10^3/uL (1.8-7.7); Neutrophils % 46.8 %; Nucleated Red Blood Cells % 0 %; Platelet Count 196 10^3/cmm (130-400); Red Blood Count 5.21 10^6/uL (4.1-5.3); Red Cell Distribution Width 13.9 % (12.1-15.1); White Blood Count 9.2 10^3/uL (4.0-10.0)
[2022-04-24] MEDS: ziprasidone 20 mg/mL SDV IM (22:07)
[2022-04-24 22:11] LABS: Alanine Aminotransferase 143 U/L (0-33); Albumin Level 4.1 g/dL (3.5-5.2); Alcohol Level 295 mg/dL (0-10); Alkaline Phosphatase 102 U/L (35-105); Anion Gap 18.2 (5-19); Aspartate Amino Transferase 145 U/L (0-32); Blood Urea Nitrogen 11 mg/dL (6-20); Calcium 9.4 mg/dL (8.5-10.5); Carbon Dioxide 22 mmol/L (22-29); Chloride 106 mmol/L (98-107); Globulin 4.8 g/dL (1.3-4.6); Glucose 139 mg/dL (65-115); Osmolality Calculated 296 mOsm/kg (285-295); Potassium 4.2 mmol/L (3.5-5.1); Sodium 142 mmol/L (136-145); Thyroid Stimulating Hormone 1.05 uIU/mL (0.27-4.20); Total Bilirubin 0.6 mg/dL (0.15-1.2); Total Protein 8.9 g/dL (6.6-8.7)
[2022-04-24 22:12] LABS: Acetaminophen < 5.0 ug/mL (10-30); Salicylate < 0.3 mg/dL (3-10)
--- NOTE | 2022-04-24 22:32 | PC.NURSE ---
pt pacing in room using stroud for support pt assisted back to bed where she fell asleep
[2022-04-25] MEDS: nitroglycerin 0.4 mg sublingual Tablet SUBLINGUAL (03:01)
[2022-04-25] MEDS: cloNIDine 0.1 mg Tablet PO (03:03)
--- NOTE | 2022-04-25 03:27 | PC.NURSE ---
After multiple calls to NPU and house sup, pt was finally transferred.
[2022-04-25 03:28] VITALS: BP 152/83; PULSE 106; RESP 17; O2SAT 98
[2022-04-25 03:29] VITALS: BP 167/110; PULSE 115; RESP 16; O2SAT 98
--- NOTE | 2022-04-25 04:00 | PC.NURSE ---
42 yr. old female transported to unit via w/c accompanied by ER Staff and Security. Admitted to room #154-1. Patient somewhat drowsy but able to do complete assessment. Patient is involuntary. Mood calm with a flat affect. Denies any thoughts of SI/HI or AVH. Reports low anxiety and depression. Stated she got drunk last night to let off a little steam. Stated things got out of control when she called her cousin to brain picker her dog because she felt like she couldn't take care of it at the time. Patient was brought to ER by police. Skin assessment completed. Small abrasion to right elbow present with a band-aid covering it. Patient reports she didn't know the police were opening the car door and she fell out onto the ground hitting her elbow. No active bleeding or swelling present. Patient denied pain. No contraband found. Patient given fluids. Snacks offered but refused. Unit rules reviewed and admission packet given to patient as well as the involuntary paperwork. Patient calm and cooperative during assessment. Escorted to room.
[2022-04-25 04:14] VITALS: BP 104/63; PULSE 111; RESP 20; TEMP 36.8; O2SAT 94
[2022-04-25 06:00] VITALS: BP 110/70; PULSE 102; RESP 18; TEMP 37.2; O2SAT 94
--- NOTE | 2022-04-25 06:35 | PC.NURSE ---
Patient resting with eyes closed at this time. No signs of distress or withdrawal. VS-WNL.
[2022-04-25] MEDS: hyDROXYzine 25 mg Capsule 50 MG PO (07:53)
[2022-04-25] MEDS: ondansetron 4 MG Tablet PO (07:53)
[2022-04-25] MEDS: gabapentin 300 mg Capsule 600 MG PO ×4 (08:29→20:34)
[2022-04-25] MEDS: folic acid 1 mg Tablet PO (08:29)
[2022-04-25] MEDS: thiamine 100 mg Tablet PO (08:29)
[2022-04-25] MEDS: lisinopril 5 mg Tablet PO (08:29)
[2022-04-25] MEDS: multivitamin therapeutic Tablet 1 TAB PO (08:29)
[2022-04-25] MEDS: nicotine 21 mg Patch 1 PATCH TRANSDERMA (11:42)
[2022-04-25 13:37] VITALS: BP 118/75; PULSE 98; RESP 15; TEMP 36.9; O2SAT 98
[2022-04-25 13:56] LABS: Add Urine Microscopic? NO; Charge for UA Resulting for Rev
[2022-04-25 14:01] LABS: Bilirubin Urine Neg (Negative); Blood Urine Neg (Negative); Glucose Urine UA Norm (Normal); HCG Qualitative Urine. Negative (Negative); Ketones Urine Negative (Negative); Leukocyte Esterase Urine Negative (Negative); Nitrate Urine Negative (Negative); Protein Urine Neg (Negative); Urine Appearance Clear (CLEAR); Urine Color Yellow (Yellow); Urobilinogen Urine 1 mg/dL (Negative); pH Urine 7 (5-7)
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
[2022-04-25] MEDS: ibuprofen 600 mg Tablet PO (16:11)
[2022-04-25] MEDS: LORazepam 2 mg Tablet PO (16:28)
[2022-04-25 18:35] LABS: Amphetamines Screen Urine Negative (Negative); Barbiturates Screen Urine Negative (Negative); Benzodiazepines Screen Urine Negative (Negative); Cocaine Screen Urine Negative (Negative); Opiate Screen Urine Negative (Negative); PCP Screen Urine Negative (Negative); THC Screen Urine Negative (Negative)
[2022-04-25 20:08] VITALS: BP 119/77; PULSE 101; RESP 16; TEMP 36.8; O2SAT 95
[2022-04-25] MEDS: mirtazapine 15 mg Tablet PO (20:34)
[2022-04-26 06:00] VITALS: BP 120/81; PULSE 73; RESP 16; TEMP 36.6; O2SAT 98
[2022-04-26] MEDS: nicotine 21 mg Patch 1 PATCH TRANSDERMA (07:52)
[2022-04-26] MEDS: lisinopril 5 mg Tablet PO (08:31)
[2022-04-26] MEDS: folic acid 1 mg Tablet PO (08:31)
[2022-04-26] MEDS: gabapentin 300 mg Capsule 600 MG PO ×4 (08:31→19:44)
[2022-04-26] MEDS: thiamine 100 mg Tablet PO (08:31)
[2022-04-26] MEDS: multivitamin therapeutic Tablet 1 TAB PO (08:31)
[2022-04-26] MEDS: hyDROXYzine 25 mg Capsule 50 MG PO (13:54)
--- NOTE | 2022-04-26 13:58 | W.PM.NPUPNS ---
Subjective NPU Subjective: Patient is a 42-year-old white female with borderline personality disorder and alcohol dependence who continues to remain on alcohol withdrawal protocol on the unit. She had reported continued depressed mood. She reports that she had not received any help for her alcohol abuse as she remained on a waiting list at the [facility]. Patient had reported continued PTSD related symptoms including nightmares and flashbacks. She had reported significant difficulties with side effects from a myriad of medical medications including naltrexone, Seroquel Prozac Zoloft Lexapro Abilify in the past., Mental Status Exam MSE Comments: She is a casually dressed white female who appeared her stated age. She was alert and oriented to person place and time. Her speech was normal in regards to rate rhythm and prosody. There was no evidence of any abnormal involuntary motor movements tics or tremors appreciated. Her mood was depressed. Her affect was restricted and tearful. There was no evidence of any delusional thinking. She did not appear to be responding to internal stimuli. Her attention and concentration appeared adequate. her impulse control was poor. her insight is feeble. her judgment is impaired. She denies suicidal or homicidal ideation. Vitals/I&O/Wt Last Vital Signs Temp 97.9 F 04/26/22 06:00 Pulse 73 04/26/22 06:00 Resp 16 04/26/22 06:00 BP 120/81 04/26/22 06:00 Pulse Ox 98 04/26/22 06:00 O2 Del Method 04/25/22 03:29 Weight last 48 hrs Weight 81.193 kg Weight 72.717 kg Data NPU : 04/24/22 21:35 04/24/22 21:35 A&P Assessment and plan (1) PTSD (post-traumatic stress disorder): (2) Suicidal ideation: (3) Alcohol use disorder, severe, dependence: (4) Borderline personality disorder: (5) EtOH dependence: (6) Suicidal ideation: (7) Anxiety: (8) Dysthymia: Plan DOLLY Is a 42-year-old white female with a significant history of alcohol dependence posttraumatic stress disorder and depression who continues to use alcohol and continues to show evidence of requiring some intensive dual diagnosis treatment program as her previous attempts at remaining sober have failed to the state. Plan 1.? Increase remeron to 22.5mg at night tonight. 2.? Continue to work at consideration of inpatient placement for alcohol dependence 3.? CIWA scale 4. Recommend intensive treatment for PTSD while engaging patient in active treatment of alcohol dependence. Patient on waiting list at [facility]. Involuntary Hold Information 96 Hour Hold: 96 Hour Involuntary Admission: Yes 96 Hour Hold Ending Date: 02/26/22 96 Hour Hold Ending Time: 19:30 Attestations NPU Medical Necessity Statement*: Inpatient hospitalization is medically necessary and the clinically appropriate intervention at this time. We will monitor medications and make changes as indicated. Patient will be in the hospital for over two midnights. Likely length of stay is three to five days. Coding Level of Care Code Established Pt Acute Well Driller for Danieg Fwd Patient Type Established History Problem Focused Exam Problem Focused Medical Decision Making Straight Forward Diagnoses PTSD (post-traumatic stress disorder) F43.10 Suicidal ideation R45.851 Alcohol use disorder, severe, dependence F10.20 Borderline personality disorder F60.3 EtOH dependence F10.20 Suicidal ideation R45.851 Anxiety F41.9 Dysthymia F34.1
[2022-04-26 14:00] VITALS: BP 126/88; PULSE 105; RESP 17; TEMP 36.5; O2SAT 98
[2022-04-26] MEDS: mirtazapine 15 mg Tablet 22.5 MG PO (19:44)
[2022-04-26 21:56] VITALS: BP 137/99; PULSE 117; RESP 18; TEMP 36.7; O2SAT 98
[2022-04-27] MEDS: LORazepam 2 mg Tablet PO (00:33)
--- NOTE | 2022-04-27 00:35 | PC.NURSE ---
Patient came to desk stating she couldn't sleep and felt sweaty. Noted to have beads of sweat on forehead. Slight tremor present. Rated anxiety at a 8/10. Denied N/V or a headache. PRN Ativan po given as ordered for CIWA. Washcloths offered to patient to wet down with cold water and apply to her forehead. Patient returned to room.
--- NOTE | 2022-04-27 01:34 | PC.NURSE ---
Patient is currently resting in bed with eyes closed. No signs of distress present.
[2022-04-27 06:00] VITALS: BP 137/84; PULSE 73; RESP 16; TEMP 36.8; O2SAT 97
[2022-04-27] MEDS: multivitamin therapeutic Tablet 1 TAB PO (08:18)
[2022-04-27] MEDS: folic acid 1 mg Tablet PO (08:18)
[2022-04-27] MEDS: nicotine 21 mg Patch 1 PATCH TRANSDERMA (08:18)
[2022-04-27] MEDS: thiamine 100 mg Tablet PO (08:18)
[2022-04-27] MEDS: gabapentin 300 mg Capsule 600 MG PO ×4 (08:18→21:18)
[2022-04-27] MEDS: lisinopril 5 mg Tablet PO (08:18)
--- NOTE | 2022-04-27 11:39 | PC.NURSE ---
PATIENT DENIES SI/HI AND AH/VH. PATIENT STATES HER ANXIETY IS 3/10 BUT THAT SHE ISN'T FEELING DEPRESSED. SHE SAYS SHE IS GETTING ANXIOUS AND ANNOYED BECAUSE THE OTHER PATIENTS ARE BEING TOO LOUD FOR HER TO REST OR FEEL COMFORTABLE.
[2022-04-27 14:00] VITALS: BP 136/90; PULSE 106; RESP 17; TEMP 36.6; O2SAT 99
--- NOTE | 2022-04-27 16:43 | P.NPUPN_ITS ---
Subjective NPU Subjective: Patient is a 42-year-old white female with borderline personality disorder and alcohol dependence who continues to remain on alcohol withdrawal protocol on the unit. She reported no side effects from her mirtazapine. She had endorsed continued depression and stated that she needed therapy. She continued to report nightmares and flashbacks. The patient was continually observed to be alcohol withdrawal scale and did not appear to have any withdrawal symptoms at this time. The patient minimized suicidal thoughts at this time but stated that she continued to have continued problems with lack of support and reported depression throughout much of her life. Mental Status Exam MSE Comments: She is a casually dressed white female who appeared her stated age. She was alert and oriented to person place and time. Her speech was normal in regards to rate rhythm and prosody. There was no evidence of any abnormal involuntary motor movements tics or tremors appreciated. Her mood was depresse d. Her affect was constricted. There was no evidence of any delusional thinking. She did not appear to be responding to internal stimuli. Her attention and concentration appeared adequate. her impulse control was poor. her insight is feeble. her judgment is impaired. She denies suicidal or h omicidal ideation. Vitals/I&O/Wt Last Vital Signs Temp 98 F 04/27/22 14:00 Pulse 106 H 04/27/22 14:00 Resp 17 04/27/22 14:00 BP 136/90 04/27/22 14:00 Pulse Ox 99 04/27/22 14:00 O2 Del Method 04/25/22 03:29 Weight last 48 hrs Weight 81.193 kg Data NPU : 04/24/22 21:35 04/24/22 21:35 A&P Assessment and plan (1) PTSD (post-traumatic stress disorder): (2) Suicidal ideation: (3) Alcohol use disorder, severe, dependence: (4) Borderline personality disorder: (5) EtOH dependence: (6) Suicidal ideation: (7) Anxiety: (8) Dysthymia: Plan DOLLY Is a 42-year-old white female with a significant history of alcohol dep endence posttraumatic stress disorder and depression who continues to use alcohol and continues to show evidence of requiring some intensive dual diagnosis treatment program as her previous attempts at remaining sober have failed to the state. Plan 1.? Increase remeron to 30mg at night tonight. 2.? Continue to work at consideration of inpatient placement for alcohol dependence 3.? CIWA scale 4. Recommend intensive treatment for PTSD while engaging patient in active treatment of alcohol dependence. Patient on waiting list at [facility]. Involuntary Hold Information 96 Hour Hold: 96 Hour Involuntary Admission: Yes 96 Hour Hold Ending Date: 02/26/22 96 Hour Hold Ending Time: 19:30 Attestations NPU Medical Necessity Statement*: Inpatient hospitalization is medically necessary and the clinically appropriate intervention at this time. We will monitor medications and make changes as indicated. Patient will be in the hospital for over two midnights. Likely length of stay is 1-2 days. Coding Level of Care Code Established Pt Acute Support Representative for Gabriela Brandt Patient Type Established History Problem Focused Exam Problem Focused Medical Decision Making Straight Forward Diagnoses PTSD (post-traumatic stress disorder) F43.10 Suicidal ideation R45.851 Alcohol use disorder, severe, dependence F10.20 Borderline personality disorder F60.3 EtOH dependence F10.20 Suicidal ideation R45.851 Anxiety F41.9 Dysthymia F34.1
[2022-04-27 20:25] VITALS: BP 137/89; PULSE 99; RESP 18; TEMP 37.2; O2SAT 97
[2022-04-27] MEDS: mirtazapine 15 mg Tablet 30 MG PO (21:18)
[2022-04-28 06:00] VITALS: BP 111/77; PULSE 99; RESP 16; TEMP 36.9; O2SAT 95
[2022-04-28] MEDS: multivitamin therapeutic Tablet 1 TAB PO (08:52)
[2022-04-28] MEDS: thiamine 100 mg Tablet PO (08:52)
[2022-04-28] MEDS: folic acid 1 mg Tablet PO (08:52)
[2022-04-28] MEDS: lisinopril 5 mg Tablet PO (08:52)
[2022-04-28] MEDS: gabapentin 300 mg Capsule 600 MG PO ×2 (08:52→13:17)
[2022-04-28] MEDS: nicotine 21 mg Patch 1 PATCH TRANSDERMA (08:53)
[2022-04-28 09:11] VITALS: BP 111/77; PULSE 99; RESP 16; TEMP 36.9; O2SAT 95
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
== END 2022-04-28 15:30 | disposition home or self-care (01) | DRG 897 ==
LOC: ER 04-25 00:38 → NP 04-25 15:10
PROVIDERS: Admitting Provider Psychiatry & Neurology Psychiatry; Emergency Provider Emergency Medicine; PCP Nurse Practitioner Family; Visit Provider Psychiatry & Neurology Psychiatry
DX: F10.229 Alcohol dependence with intoxication, unspecified (principal); R45.851 Suicidal ideations; Y90.8 Blood alcohol level of 240 mg/100 ml or more; F60.3 Borderline personality disorder; F17.210 Nicotine dependence, cigarettes, uncomplicated; F43.10 Post-traumatic stress disorder, unspecified; F32.9 Major depressive disorder, single episode, unspecified; F41.9 Anxiety disorder, unspecified; F34.1 Dysthymic disorder
CPT/HCPCS: 36415; 80053; 80306; 80307; 81003; 81025; 84443; 85025; 96372; 97150; 97165; 99285; J3486; Q0162

== ENCOUNTER 2022-11-23 17:00 | Emergency (ER) | payer MEDICAID, SELFPAY ==
[2022-11-23 17:01] VITALS: BP 134/91; PULSE 111; RESP 18; TEMP 36.6; O2SAT 93; BMI 32.1
--- NOTE | 2022-11-23 17:19 | W.ED.GENADLT ---
HPI - General Adult General: Chief complaint: General Medical Stated complaint: ANGRY Time Seen by Provider: 11/23/22 17:07 History of Present Illness: 42-year-old female comes in today for concerns of anger. Patient reports that she was upset with her sister and wanted to talk to somebody about it so she called the crisis hotline. Patient reports that she never mentioned that she was homicidal or suicidal but EMS was dispatched to her home and brought her to the emergency room for further evaluation. Patient denies any suicidal homicidal thoughts. Patient does admit to drinking 1 alcoholic beverage around 2:00 today. Patient responds appropriate to questions and is not acting intoxicated. Patient walks without difficulty. Patient is alert and oriented. Patient has a history of borderline personality disorder and substance use disorder. Associated symptoms: Deny chest pain, dyspnea, nausea, rash or vomiting Review of Systems General: Reports: 10 or more systems reviewed and unremarkable except in HPI and below Card: Denies: chest pain Resp: Denies: dyspnea GI: Denies: nausea or vomiting : Denies: difficulty voiding Musc: Denies: neck pain or back pain Skin/Breast: Denies: rash Psych: Denies: visual hallucinations, auditory hallucinations, suicidal ideation or homicidal ideation PFS ED PFSH: Medical History Neuropathy Psychiatric care Social History Smoking and tobacco status: current every day smoker cigarettes Packs smoked per day: 0.3 Years cigarettes smoked: 23 Quit status (tobacco): has tried quititng Number of times tried to quit tobacco: 3 Second hand smoke exposure: No Alcohol intake: current Alcohol intake frequency: few times a week Alcohol type: hard liquor Desire information about alcohol rehabilitation?: No Counseling given: Yes Last alcohol use date: 04/19/21 Last alcohol use time: 11:48 Physical Exam Const: COMMON NORMALS: patient oriented x3 and alert HENMT: COMMON NORMALS: normocephalic HEAD & SCALP: normocephalic Neck/C-Spine: COMMON NORMALS: full ROM Resp: COMMON NORMALS: normal respiratory effort Cardio: COMMON NORMALS: regular rate and regular rhythm RATE: regular rate RHYTHM: regular rhythm Back/Pelvis: COMMON NORMALS: thoracic and lumbar spine normal to inspection Extremity: COMMON NORMALS: full ROM and capillary refill normal Neuro: COMMON NORMALS: patient oriented x3 SENSORIUM/ORIENTATION: Yes alert Skin: COMMON NORMALS: turgor normal GENERAL SKIN EXAM: turgor normal Course Vital Signs: Vital signs: Vital Signs Temperature 97.8 F 11/23/22 17:01 Pulse Rate 114 H 11/23/22 17:43 Respiratory Rate 18 11/23/22 17:43 Blood Pressure 134/91 11/23/22 17:01 Pulse Oximetry 96 11/23/22 17:43 Oxygen Delivery Me thod Room Air 11/23/22 17:01 MDM - General Adult Medical Decision Making Patient was brought to the ER after contacting crisis hotline to talk with a specialist regarding her anger towards her sister. Patient denies suicidal or homicidal thoughts. Patient does not want admission to stress unit. Patient is calm and cooperative during the exam. Patient reports that she would like to be referred to behavioral health counseling for further treatment and evaluation. Patient has been trying to get into counseling but has not heard back from the [facility] group regarding her referral. Differential diagnosis includes not limited to anxiety, suicidal/homicidal ideation, MDD, anger disorder. After discussion with patient I did not feel that patient was suicidal or homicidal. I will place in a order for case management to help with referral to behavioral health counseling. Patient was agreeable for this plan. Patient was recommended to follow-up with primary care otherwise. Discharge Plan Discharge Patient Disposition: Home Clinical Impression: Anger reaction, Borderline personality disorder EtOH dependence Qualifiers: Substance use status: unspecified alcohol-induced disorder Qualified Code(s): F10.29 - Alcohol dependence with unspecified alcohol-induced disorder Condition: Stable Prescriptions: No Action lisinopril 5 mg tablet 5 mg PO DAILY Qty: 90 1RF mirtazapine 15 mg Tablet 30 mg PO BEDTIME 30 Days Qty: 60 1RF gabapentin 600 mg tablet 600 mg PO QID Qty: 120 1RF Discharge Orders: Discharge ED (Routine); Ordered 11/23/22 Ordered By: Rob Temple Referrals: Ira Ashby FNP [Referring] - Discharge Diet: Usual diet Discharge Activity: Increase activity as tolerated Patient Instructions: Abuse of Alcohol (ED) Activity Restrictions/Additional Instructions: Case management will contact you regarding follow-up appointment with behavioral health counseling. Continue with routine medications as prescribed by primary care. Try to limit alcohol consumption to 1-2 drinks a day. Do not mix gabapentin with alcohol use. Follow-up with primary care as needed. Return to ED for new concerns. Coding Level of Care Code ED Micro Paleontologist for Gabriela Brnadt
[2022-11-23 17:43] VITALS: PULSE 114; RESP 18; O2SAT 96
--- NOTE | 2022-11-24 08:15 | DCPLANNER ---
Addendum entered by Aster Penn 12/03/22 10:11: Patient had a follow up appointment scheduled with [facility] - patient did attend appointment. Addendum entered by Aster Penn 11/26/22 13:03: Patient has a follow up appointment scheduled with therapy at [facility] for Wednesday, December 02, 2022 at 12:00 with Ketty Araujo Addendum entered by Aster Penn 11/26/22 13:01: manager marketing sales received the following message from Lu at [facility] regarding follow up appointment: Did her assessment 07/14/22. [facility] scheduling tried to call to schedule a 7 day follow up and there was no answer. Original Note: manager marketing sales had message to schedule a follow up appointment for patient with [facility]. manager marketing sales sent patients information to the scheduling staff at [facility] and to donor services coordinator Lu Lewis at [facility]. Patients information will be printed and reviewed. Clinic will call patient with appointment information.
--- NOTE | 2022-11-24 09:02 | DCPLANNER ---
survey research manager called patient due to no primary care physician - no answer at this time.
== END 2022-11-23 17:44 | disposition home or self-care (01) ==
PROVIDERS: Emergency Provider Nurse Practitioner Family
DX: R45.4 Irritability and anger (principal); F60.3 Borderline personality disorder; F10.29 Alcohol dependence with unspecified alcohol-induced disorder; F17.210 Nicotine dependence, cigarettes, uncomplicated
CPT/HCPCS: 99282

== ENCOUNTER 2025-06-24 11:50 | Emergency (ER) | payer MEDICAID, SELFPAY ==
--- OUTSIDE RECORDS SUMMARY | 2025-06-24 11:54 | XMS_ITS | Clinical Summary ---
Author Organization [email or web address] Address [address] 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 120 Tablet 5 5 Active hydrOXYzine pamoate (VISTARIL) 25 mg capsuleIndicatio ns:Anxiety state TAKE 1 CAPSULE BY MOUTH THREE TIMES DAILY NEEDED FOR ANXIETY 90 Capsule 5 5 Active lisinopriL (PRINIVIL) 10 mg tabletIndication s:HTN (hypertension), benign Take 1 Tablet (10 mg) by mouth daily. 100 Tablet 3 5 Active multivitamin with folic acid 400 mcg Tablet tabletIndication s:Thrombocytopen ia, unspecified Take 1 Tablet by mouth daily. 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 12/01/2021 Alcohol withdrawal syndrome without complication 03/20/2021 Alcohol dependence with withdrawal 03/20/2021 Tobacco abuse 03/20/2021 HTN (hypertension), benign 03/20/2021 History of hepatitis C 06/02/2019 Resolved Problems Problem Noted Date Diagnosed Date Resolved Date Alcoholic cirrhosis of liver without ascites 07/22/2022 Encounters Date Type Department Care Team Description 06/19/2025 External Device Data [facility] ABSTRACTION Provider, Abstract 06/12/2025 External Device Data [facility] ABSTRACTION Provider, Abstract 05/01/2025 External Device Data [facility] ABSTRACTION Provider, Abstract 04/24/2025 External Device Data [facility] ABSTRACTION Provider, Abstract 04/21/[address] [address] Kaleigh Patel NP from Last 3 Months Immunizations Immunization Administration Dates Next Due Tetanus Vaccine IM 09/06/2009 Social History Tobacco Use Types Packs/Day Years Used Date Smoking Tobacco: Every Day Cigarettes 0.5 31.9 Started: 07/20/1993 Smokeless Tobacco: Never Tobacco Cessation:Ready to Q uit: No; Counseling Given: Yes Alcohol Use Standard Drinks/Week Comments Yes 0 (1 standard drink = 0.6 oz pur e alcohol) Feeling Safe Answer Date Recorded Are you in a relationship wi th someone who hurts you emotionally and/or physically? No 02/28/2024 Comments No Sex and Gender Information Value Date Recorded Sex Assigned at Not on file Legal Sex Female 6:31 AM STAIR BUILDER Gender Identity Not on file Sexual Orientation Not on file Last Filed Vital Signs Vital Sign Reading Time Taken Comments Blood Pressure 112/74 11/30/2024 8:34 AM CDT Pulse 88 11/30/2024 8:34 AM CDT Temperature 36.6 C (97.8 F) 11/30/2024 8:34 AM CDT Respiratory Rate 18 11/30/2024 8:34 AM CDT Oxygen Saturation 97% 11/30/2024 8:34 AM CDT Inhaled Oxygen Concentration - - Weight 73.6 kg (162 lb 4 oz) 11/30/2024 8:34 AM CDT Height 157.5 cm (5' 2 ) 11/30/2024 8:34 AM CDT Body Mass Index 29.68 11/30/2024 8:34 AM CDT Plan of Treatment Upcoming Encounters Date Type Department Care Team (Late st Contact Info) Description 07/23/2025 2:20 PM STAIR BUILDER Office Visit [facility] [address] [place] [id number] Shruthi Abebe MD [address] [place] [address] 12/06/2025 1:20 PM CDT Office Visit [facility] [address] [place] [address] Shruthi Abebe MD [address] [place] [address] Health Maintenance Due Date Last Done Comments Pre-Diabetes and Diabetes Screening 1978 DTAP/TDAP/TD VACCINES (1 - Tdap) 1997 HEPATITIS B VACCINES (1 of 3 - 19+ 3-dose series) 1997 Preventative Visit-Managed Medicaid 1997 HPV/Cotest (21-29) 1999 CERVICAL CANCER SCREENING 01/06/2008 HPV/Cotest (30-65) 01/06/2008 PAP SMEAR 01/06/2008 BREAST CANCER SCREENING 2018 COLORECTAL SCREENING 2023 FIT/FOBT Q 1 year 2023 Flex Sig/CT Colonography Q 5 years 2023 INFLUENZA VACCINE (#1) 2025 03/08/2023 COVID-19 Vaccine (3 - season) 2025, 02/21/2021 Colorectal Cancer Screening 04/19/2027 FIT-DNA Q 3 years 04/19/2027 04/19/2024 Procedures Procedure Name Priority Date/Time Associated Diagnosis Comments COLON CANCER SCREEN, STOOL DNA Routine 04/19/2024 12:30 PM CDT Encounter for colorectal cancer screening from Last 3 Months or Most Recently Relevant to Health Maintenance Results * COLON CANCER SCREEN, STOOL DNA (04/19/2024 12:30 PM CDT) COLOGUARD RESULT Negative Negative [employer] Comment: NEGATIVE TEST RESULT. A negative Cologuard result indicates a low likelihood that a colorectal cancer (CRC) or advanced adenoma (adenomatous polyps with more advanced pre-malignant features) is present. The chance that a person with a negative Cologuard test has a colorectal cancer is less than 1 in 1500 (negative predictive value >99.9%) or has an advanced adenoma is less than 5.3% (negative predictive value 94.7%). These data are based on a prospective cross-sectional study of 10,000 individuals at average risk for colorectal cancer who were screened with both Cologuard and colonoscopy. (Heidy Ramirez al, N Engl J Med 2014;370(14):3552-7696) The normal value (reference range) for this assay is negative. COLOGUARD RE-SCREENING RECOMMENDATION: Periodic colorectal cancer screening is an important part of preventive healthcare for asymptomatic individuals at average risk for colorectal cancer. Following a negative Cologuard result, the [place] Cancer Society and U.S. Multi-Society Task Force screening guidelines recommend a Cologuard re-screening interval of 3 years. References: [place] [employer] Guideline for Colorectal Cancer Screening: https://www.cancer.org/cancer/gtqzm-rwbujb-lkaiav/pvxudmwpu-rqxhsypni-lediicj/ac s-rec ommendations.html.; Esdras DK, Howie CR, Jerald ChenK, Colorectal Cancer Screening: Recommendations for Physicians and Patients from the U.S. Multi-Society Task Force on Colorectal Cancer Screening , Am J Gastroenterology 2017; 112:9787-5574. TEST DESCRIPTION: Composite algorithmic analysis of stool DNA-biomarkers with hemoglobin immunoassay. Quantitative values of individual biomarkers are not reportable and are not associated with individual biomarker result reference ranges. Cologuard is intended for colorectal cancer screening of adults of either sex, 45 years or older, who are at average-risk for colorectal cancer (CRC). Cologuard has been approved for use by the U.S. FDA. The performance of Cologuard was established in a cross sectional study of average-risk adults aged 50-84. Cologuard performance in patients ages 45 to 49 years was estimated by sub-group analysis of near-age groups. Colonoscopies performed for a positive result may find as the most clinically significant lesion: colorectal cancer [4.0%], advanced adenoma (including sessile serrated polyps greater than or equal to 1cm diameter) [20%] or non- advanced adenoma [31%]; or no colorectal neoplasia [45%]. These estimates are derived from a prospective cross-sectional screening study of 10,000 individuals at average risk for colorectal cancer who were screened with both Cologuard and colonoscopy. (Heidy Nagel et al, N Engl J Med 2014;370(14):8776-5700.) Cologuard may produce a false negative or false positive result (no colorectal cancer or precancerous polyp present at colonoscopy follow up). A negative Cologuard test result does not guarantee the absence of CRC or advanced adenoma (pre-cancer). The current Cologuard screening interval is every 3 years. ([place] [employer] Society and U.S. Multi-Society Task Force). Cologuard performance data in a 10,000 patient pivotal study using colonoscopy as the reference method can be accessed at the following location: www.[employer]ara[employer].com.[employer] ([employer]IE)/results. Additional description of the Cologuard test process, warnings and precautions can be found at www.cologuard.com. Stool STOOL SPECIMEN / Unknown 04/19/2024 12:30 PM CDT 04/21/2024 5:24 PM CDT us Ira Ashby [employer] BODY FLUIDS AND STOOLS Final Res ult [employer] CLIA # [id number] [address] , [address] [place] [address] from Last 3 Months or Most Recently Relevant to Health Maintenance [place] Advance Directives For more information, please contact: [phone] Documents on File Type Date Recorded Patient Middle School History Teacher Expl anation Advance Directive POA 11/30/2024 9:01 AM Ad ford Directive POA * Full Code (Latest Code Status on File) Date Activated Date Inactivated Comments 01/22/2022 12:05 PM 01/25/2022 2:57 PM * Full Code Date Activated Date Inactivated Comments 11/30/2021 3:52 PM 12/04/2021 4:17 PM * Full Code Date Activated Date Inactivated Comments 03/21/2021 6:31 AM 03/21/2021 9:18 PM Care Teams Environmental Field Office Manager Relationship Specialty Start Date End Date Shruthi Abebe MD [address] [facility] [address] [place] [address] PCP - General Family Practice 05/31/25
--- OUTSIDE RECORDS SUMMARY | 2025-06-24 11:54 | XMS_ITS | Encounter Summary ---
Author Organization [facility] Address [address] [place] [address] Care Team Providers Care Branch Billing Payroll Clerk Name Role Phone Shruthi Abebe MD Primary Care Provider [phone] Encounter Details Date Type Department Care Team (Late Contact Info) Description 06/19/2025 External Device Data [facility] ABSTRACTION Provider, Abstract NO ADDRESS ON FILE Social History Tobacco Use Types Packs/Day Years Used Date Smoking Tobacco: Every Day Cigarettes 0.5 31.9 Started: 07/20/1993 Smokeless Tobacco: Never Alcohol Use Standard Drinks/Week Comments Yes 0 (1 standard drink = 0.6 oz pur e alcohol) Feeling Safe Answer Date Recorded Are you in a relationship wi th someone who hurts you emotionally and/or physically? No 02/28/2024 Comments No Sex and Gender Information Value Date Recorded Sex Assigned at Not on file Legal Sex Female 6:31 AM VICE PRESIDENT OF COMMUNICATIONS Gender Identity Not on file Sexual Orientation Not on file documented as of this encounter Plan of Treatment Upcoming Encounters Date Type Department Care Team ([facility] Contact Info) Description 07/23/2025 2:20 PM VICE PRESIDENT OF COMMUNICATIONS Office Visit [address] [address] Shruthi Abebe MD [address] [address] 12/06/2025 1:20 PM CDT Office Visit [address] [address] Shruthi Abebe MD [address] [phone] documented as of this encounter Visit Diagnoses Not on filedocumented in this encounter Care Teams Branch Billing Payroll Clerk Relationship Specialty Start Date End Date Shruthi Abebe MD [address] [address] PCP - General Family Practice 05/31/25 documented as of this encounter
[2025-06-24 12:00] VITALS: BP 155/107; PULSE 130; RESP 17; TEMP 36.8; O2SAT 91; BMI 27.4
--- NOTE | 2025-06-24 12:42 | PC.NURSE ---
No belongings with patient at this time
--- NOTE | 2025-06-24 12:57 | PC.NURSE ---
Patient to OB2 due to bed availability. Patient was triaged at 1200 by charge nurse then ambulated to OB2. This nurse in room at 1210 to talk with patient.
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
[2025-06-24] MEDS: ondansetron 2 mg/ML SDV 2 mL 4 MG IM (13:56)
[2025-06-24 14:13] LABS: Alcohol Level 279 mg/dL (0-10)
[2025-06-24 14:28] LABS: Glucose Urine UA Negative (Normal); Nitrate Urine Positive (Negative)
[2025-06-24 14:33] LABS: Add Urine Microscopic? YES
[2025-06-24 14:48] LABS: Specific Gravity, Urine 1.032 (1.005-1.030)
[2025-06-24 14:49] LABS: PCP Screen Urine Negative (Negative)
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
[2025-06-24] MEDS: cefTRIAXone 1,000 mg SDV 1000 MG IM (15:45)
[2025-06-24 15:53] LABS: Neisseria Gonorrhea NOT DETECTED (Negative)
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
[2025-06-24 16:52] VITALS: BP 137/95; PULSE 110; RESP 18; TEMP 36.9; O2SAT 100
== END 2025-06-24 16:05 | disposition home or self-care (01) ==
PROVIDERS: Emergency Provider Physician Assistant
DX: T74.21XA Adult sexual abuse, confirmed, initial encounter (principal); X58.XXXA Exposure to other specified factors, initial encounter
CPT/HCPCS: 80306; 80307; 81001; 87210; 87491; 87591; 96372; 99284; J0696; J2405; J9999; Q0144